=== PATIENT | male | born 1950 | race Two or more races ===

== ENCOUNTER 2021-09-25 10:35 | Emergency (ER) | payer OTHER, MEDICAID ==
[~2021-09-25] VITALS: Ht 182.9 cm; Wt 72.6 kg
[2021-09-25 11:52] VITALS: BP 128/51
[2021-09-25] MEDS ORDERED: HYDROcodone-ACET 5/325MG TAB PO ONE (13:15)
== END 2021-09-25 13:36 ==
LOC: ER 10:35
DX: M48.061 Spinal stenosis, lumbar region without neurogenic claudication (principal); M54.16 Radiculopathy, lumbar region; I10 Essential (primary) hypertension; I25.2 Old myocardial infarction; E78.5 Hyperlipidemia, unspecified; Z95.1 Presence of aortocoronary bypass graft
CPT/HCPCS: 72131

== ENCOUNTER 2022-08-21 13:14 | Inpatient (IN) | payer OTHER ==
[~2022-08-21] VITALS: Ht 182.9 cm; Wt 71.0 kg
[2022-08-21] MEDS ORDERED: methylPREDNISolone SOD SUCC 125 MG/2 ML VL IV ONE (14:00)
[2022-08-21] MEDS ORDERED: IPRATROPIUM BROM 0.5 MG/2.5ML INH SOL HHN ONE (14:00)
[2022-08-21] MEDS ORDERED: ALBUTEROL SULF 2.5 MG/0.5ML(0.5%) NEB SOLN HHN ONE (14:00)
[2022-08-21 14:20] LABS: Basophils # (auto) 0 10 ^3/uL (0-0.2); Basophils % (auto) 0.4 % (0.0-2.0); Eosinophils # (auto) 0.2 10 ^3/uL (0-0.8); Eosinophils % (auto) 1.6 % (0.0-7.0); Hematocrit 36.3 % (41.0-53.0); Hemoglobin 12.3 g/dL (13.5-17.5); Lymphocytes # (auto) 1.9 10 ^3/uL (0.4-5.4); Lymphocytes % (auto) 16.3 % (10.0-50.0); Mean Corpuscular Hemoglobin 33.3 pg (28.0-32.0); Mean Corpuscular Hgb Conc. 33.9 g/dL (32.0-36.0); Mean Corpuscular Volume 98.2 fL (80.0-100.0); Monocytes # (auto) 0.9 10 ^3/uL (0-1.3); Monocytes % (auto) 7.7 % (0.0-12.0); Neutrophils # (auto) 8.5 10 ^3/uL (1.6-8.6); Red Cell Distribution Width 15.1 % (11.8-14.3); White Blood Cell 11.5 10^3/uL (4.4-10.8)
[2022-08-21 14:33] LABS: Albumin 2.8 g/dL (3.4-5.0); BUN/Creatinine Ratio 16.5; Calcium 8.5 mg/dL (8.5-10.1); Potassium 4.1 mmol/L (3.5-5.1)
[2022-08-21 14:35] LABS: Bilirubin, Total 0.4 mg/dL (0.2-1.0); Total Protein 8.6 g/dL (6.4-8.2)
[2022-08-21] MEDS ORDERED: IOHEXOL 350 MG/ML 100ML IJ ONE (15:22)
[2022-08-21 16:48] LABS: Urine Bacteria NONE SEEN /hpf (None Seen); Urine Blood Negative /uL (Negative); Urine WBC <1 /hpf (0 - 3)
[2022-08-21 16:51] LABS: Urine Specific Gravity > 1.050 (1.001-1.035)
[2022-08-21] MEDS ORDERED: NITROGLYCERIN 0.4 MG SL TAB SL PRN (17:15)
[2022-08-21] MEDS ORDERED: DOCUSATE SOD 100 MG CAP PO PRN (17:15)
[2022-08-21] MEDS ORDERED: ONDANSETRON HCL 4 MG/2 ML VIAL IV PRN (17:15)
[2022-08-21] MEDS ORDERED: MORPHINE SULFATE INJ 2 MG/ml SYRG IV PRN (17:15)
[2022-08-21] MEDS ORDERED: HYDROcodone-ACET 5/325MG TAB PO PRN (17:15)
[2022-08-21] MEDS ORDERED: ACETAMINOPHEN 325 MG TAB PO PRN (17:15)
[2022-08-21] MEDS ORDERED: APIX2.5T PO (18:28)
[2022-08-21] MEDS ORDERED: CARV3.1240 PO (18:29)
[2022-08-21] MEDS ORDERED: FURO1TAB33 PO (18:30)
[2022-08-21] MEDS ORDERED: ATOR10TA52 PO (18:30)
[2022-08-21] MEDS: SODIUM CHLORIDE 0.9% 1,000 ML IV SCH (20:59)
[2022-08-22] VITALS (7 sets, daily range): BP systolic 116–129; BP diastolic 49–71
[2022-08-22] MEDS ORDERED: ALBUTEROL SULF 2.5 MG/0.5ML(0.5%) NEB SOLN NEB PRN (01:00)
[2022-08-22] MEDS ORDERED: levoFLOXacin 500MG 100 ML IV SCH (01:01)
[2022-08-22 03:57] LABS: BUN/Creatinine Ratio 21.2; Basophils # (auto) 0 10 ^3/uL (0-0.2); Basophils % (auto) 0.1 % (0.0-2.0); Calcium 8.7 mg/dL (8.5-10.1); Eosinophils # (auto) 0 10 ^3/uL (0-0.8); Hematocrit 33.4 % (41.0-53.0); Hemoglobin 11.3 g/dL (13.5-17.5); Lymphocytes # (auto) 0.9 10 ^3/uL (0.4-5.4); Lymphocytes % (auto) 8.9 % (10.0-50.0); Mean Corpuscular Volume 100.1 fL (80.0-100.0); Monocytes # (auto) 0.2 10 ^3/uL (0-1.3); Monocytes % (auto) 2.1 % (0.0-12.0); Neutrophils # (auto) 8.8 10 ^3/uL (1.6-8.6); Neutrophils % (auto) 88.9 % (37.0-80.0); Potassium 4.1 mmol/L (3.5-5.1); Red Blood Cells 3.34 10^6/uL (4.5-5.90); Red Cell Distribution Width 15.3 % (11.8-14.3); White Blood Cell 9.9 10^3/uL (4.4-10.8)
[2022-08-22] MEDS: methylPREDNISolone SOD SUCC 40 MG/ML VL IV SCH ×3 (06:19→22:06)
[2022-08-22] MEDS ORDERED: FLUT0.05 NAS (10:22)
[2022-08-22] MEDS ORDERED: ALBU2TAB4 IN (10:22)
[2022-08-22] MEDS ORDERED: PRED1SUS4 OP (10:22)
[2022-08-22] MEDS ORDERED: ADAL40IN2 SC (10:24)
[2022-08-22] MEDS: PANTOPRAZOLE 40 MG/10 ML VIAL INJ IV SCH (10:27)
[2022-08-22] MEDS: SODIUM CHLORIDE 0.9% 1,000 ML IV SCH ×2 (10:27→18:57)
[2022-08-22] MEDS: ALBUTEROL SULF 2.5 MG/0.5ML(0.5%) NEB SOLN NEB SCH ×2 (13:35→19:37)
[2022-08-22] MEDS: IPRATROPIUM BROM 0.5 MG/2.5ML INH SOL NEB SCH ×2 (13:35→19:37)
[2022-08-22] MEDS ORDERED: ATORVASTATIN 20 MG TAB PO SCH (22:00)
[2022-08-22] MEDS ORDERED: ALBUTEROL SULF HFA 90MCG INH 200DOSE IN SCH (22:00)
[2022-08-22] MEDS: PIPERACILLIN-TAZOB 3.375GM 100 ML IV SCH (22:06)
[2022-08-22] MEDS: CARVEDILOL 3.125 MG TAB PO SCH (22:06)
[2022-08-23] MEDS: IPRATROPIUM BROM 0.5 MG/2.5ML INH SOL NEB SCH ×3 (00:12→13:46)
[2022-08-23] MEDS: ALBUTEROL SULF 2.5 MG/0.5ML(0.5%) NEB SOLN NEB SCH ×3 (00:12→13:46)
[2022-08-23 05:00] VITALS: BP 120/51
[2022-08-23] MEDS: PIPERACILLIN-TAZOB 3.375GM 100 ML IV SCH ×2 (05:56→15:06)
[2022-08-23] MEDS: methylPREDNISolone SOD SUCC 40 MG/ML VL IV SCH ×2 (05:56→15:06)
[2022-08-23 06:05] LABS: Basophils # (auto) 0 10 ^3/uL (0-0.2); Basophils % (auto) 0.1 % (0.0-2.0); Eosinophils # (auto) 0 10 ^3/uL (0-0.8); Hematocrit 31.9 % (41.0-53.0); Hemoglobin 10.8 g/dL (13.5-17.5); Lymphocytes # (auto) 1.1 10 ^3/uL (0.4-5.4); Lymphocytes % (auto) 7.6 % (10.0-50.0); Mean Corpuscular Hemoglobin 33.6 pg (28.0-32.0); Mean Corpuscular Hgb Conc. 33.9 g/dL (32.0-36.0); Mean Corpuscular Volume 99.1 fL (80.0-100.0); Monocytes # (auto) 0.6 10 ^3/uL (0-1.3); Monocytes % (auto) 3.7 % (0.0-12.0); Neutrophils # (auto) 13.4 10 ^3/uL (1.6-8.6); Neutrophils % (auto) 88.6 % (37.0-80.0); Red Blood Cells 3.22 10^6/uL (4.5-5.90); Red Cell Distribution Width 15.2 % (11.8-14.3); White Blood Cell 15.2 10^3/uL (4.4-10.8)
[2022-08-23 06:23] LABS: Calcium 8.7 mg/dL (8.5-10.1); Potassium 4.1 mmol/L (3.5-5.1)
[2022-08-23 06:25] LABS: BUN/Creatinine Ratio 27.8
[2022-08-23 09:00] VITALS: BP 129/69
[2022-08-23] MEDS ORDERED: FUROSEMIDE 20 MG TAB PO SCH (10:00)
[2022-08-23] MEDS: CARVEDILOL 3.125 MG TAB PO SCH (11:06)
[2022-08-23] MEDS: PANTOPRAZOLE 40 MG/10 ML VIAL INJ IV SCH (11:12)
[2022-08-23] MEDS ORDERED: AMOX-277 PO (12:40)
[2022-08-23] MEDS ORDERED: PRED20TA2 PO (12:40)
[2022-08-23 13:00] VITALS: BP 123/54
[2022-08-23 17:00] VITALS: BP 120/51
[2022-08-23 17:08] VITALS: BP 123/54
== END 2022-08-23 18:20 | disposition home or self-care (01) | DRG 193 ==
LOC: ER 13:16 → UNDOADMIN 17:15 → TELE 17:15 → TELE-WESTW 08-22 04:35
PROVIDERS: ADMIT Internal Medicine; ATTEND Internal Medicine
DX: J18.9 Pneumonia, unspecified organism (principal); J96.01 Acute respiratory failure with hypoxia; J45.901 Unspecified asthma with (acute) exacerbation; J98.11 Atelectasis; Z20.822 Contact with and (suspected) exposure to COVID-19; I10 Essential (primary) hypertension; Z79.01 Long term (current) use of anticoagulants; Z85.46 Personal history of malignant neoplasm of prostate; Z95.1 Presence of aortocoronary bypass graft; Z79.899 Other long term (current) drug therapy
CPT/HCPCS: 36415; 36600; 71045; 71275; 80048; 80053; 81001; 82805; 83605; 83880; 84484; 85025; 85379; 87040; 87070; 87077; 87186; 87205; 87426; 87804; 94640; 94644; 96365; 96375; 99291; C9113; G0378; J1956; J2543

== ENCOUNTER 2023-01-09 07:03 | Inpatient (IN) | payer OTHER ==
[~2023-01-09] VITALS: Ht 182.9 cm; Wt 68.5 kg
[~2023-01-09 07:03] MED LIST: ADAL40IN2 SC; ALBU2TAB4 IN; AMOX-277 PO; APIX2.5T PO; ATOR10TA52 PO; CARV3.1240 PO; FLUT0.05 NAS; FURO1TAB33 PO; PRED1SUS4 OP; PRED20TA2 PO
[2023-01-09] MEDS ORDERED: AZITHROMYCIN 500MG/ 250ML 250 ML IV ONE (08:30)
[2023-01-09] MEDS ORDERED: cefTRIAXone 1GM/50ML D5W 50 ML IV ONE (08:30)
[2023-01-09 08:56] LABS: Basophils # (auto) 0.1 10 ^3/uL (0-0.2); Basophils % (auto) 0.5 % (0.0-2.0); Eosinophils # (auto) 0.2 10 ^3/uL (0-0.8); Eosinophils % (auto) 1.2 % (0.0-7.0); Hematocrit 34.8 % (41.0-53.0); Hemoglobin 11.8 g/dL (13.5-17.5); Lymphocytes % (auto) 14.3 % (10.0-50.0); Mean Corpuscular Hemoglobin 32.6 pg (28.0-32.0); Mean Corpuscular Volume 95.7 fL (80.0-100.0); Neutrophils # (auto) 10.8 10 ^3/uL (1.6-8.6); Nucleated Red Blood Cells % 0.1 %; Red Blood Cells 3.63 10^6/uL (4.5-5.90); Red Cell Distribution Width 15.4 % (11.8-14.3); White Blood Cell 14.1 10^3/uL (4.4-10.8)
[2023-01-09 09:28] LABS: Albumin 2.9 g/dL (3.4-5.0); Calcium 8.6 mg/dL (8.5-10.1)
[2023-01-09 09:31] LABS: BUN/Creatinine Ratio 21.9 (10.0-20.0); Bilirubin, Total 0.5 mg/dL (0.2-1.0)
[2023-01-09] MEDS ORDERED: IOHEXOL 350 MG/ML 100ML IJ ONE (10:39)
[2023-01-09 12:28] LABS: Urine Bacteria FEW /hpf (None Seen); Urine Blood Negative /uL (Negative); Urine Specific Gravity 1.017 (1.001-1.035); Urine WBC 3 /hpf (0 - 3)
[2023-01-09] MEDS ORDERED: ONDANSETRON HCL 4 MG/2 ML VIAL IV PRN (14:15)
[2023-01-09] MEDS ORDERED: DOCUSATE SOD 100 MG CAP PO PRN (14:15)
[2023-01-09] MEDS ORDERED: MORPHINE SULFATE INJ 2 MG/ml SYRG IV PRN (14:15)
[2023-01-09] MEDS ORDERED: NITROGLYCERIN 0.4 MG SL TAB SL PRN (14:15)
[2023-01-09] MEDS ORDERED: HYDROcodone-ACET 5/325MG TAB PO PRN (14:15)
[2023-01-09] MEDS: ACETAMINOPHEN 325 MG TAB PO PRN (15:08)
[2023-01-09] MEDS: levoFLOXacin 500MG 100 ML IV SCH (16:17)
[2023-01-09] MEDS: SODIUM CHLORIDE 0.9% 1,000 ML IV SCH (16:21)
[2023-01-09] MEDS ORDERED: ALBUTEROL SULF 2.5 MG/0.5ML(0.5%) NEB SOLN NEB ONE (18:00)
[2023-01-09 19:00] VITALS: BP 103/42
[2023-01-09] MEDS: APIXABAN 2.5 MG TAB PO SCH (22:44)
[2023-01-09] MEDS: CARVEDILOL 3.125 MG TAB PO SCH (22:44)
[2023-01-09] MEDS: ALBUTEROL SULF 2.5 MG/0.5ML(0.5%) NEB SOLN NEB SCH (23:42)
[2023-01-10] MEDS: ACETAMINOPHEN 325 MG TAB PO PRN (01:04)
[2023-01-10] MEDS: SODIUM CHLORIDE 0.9% 1,000 ML IV SCH ×2 (03:51→16:55)
[2023-01-10] MEDS: ALBUTEROL SULF 2.5 MG/0.5ML(0.5%) NEB SOLN NEB SCH ×3 (06:00→18:43)
[2023-01-10 06:31] LABS: Basophils # (auto) 0.1 10 ^3/uL (0-0.2); Basophils % (auto) 0.4 % (0.0-2.0); Eosinophils # (auto) 0.1 10 ^3/uL (0-0.8); Eosinophils % (auto) 0.5 % (0.0-7.0); Hematocrit 30.6 % (41.0-53.0); Hemoglobin 10.8 g/dL (13.5-17.5); Lymphocytes # (auto) 2.1 10 ^3/uL (0.4-5.4); Lymphocytes % (auto) 16.1 % (10.0-50.0); Mean Corpuscular Hemoglobin 33.5 pg (28.0-32.0); Mean Corpuscular Hgb Conc. 35.2 g/dL (32.0-36.0); Mean Corpuscular Volume 95.4 fL (80.0-100.0); Monocytes % (auto) 7.7 % (0.0-12.0); Neutrophils # (auto) 9.8 10 ^3/uL (1.6-8.6); Neutrophils % (auto) 75.3 % (37.0-80.0); Nucleated Red Blood Cells % 0.1 %; Red Blood Cells 3.21 10^6/uL (4.5-5.90); Red Cell Distribution Width 15.3 % (11.8-14.3)
[2023-01-10 07:05] LABS: BUN/Creatinine Ratio 21.2 (10.0-20.0); Calcium 8.5 mg/dL (8.5-10.1); Potassium 3.7 mmol/L (3.5-5.1)
[2023-01-10] MEDS: CARVEDILOL 3.125 MG TAB PO SCH ×2 (10:00→23:04)
[2023-01-10] MEDS: FUROSEMIDE 20 MG TAB PO SCH (10:00)
[2023-01-10] MEDS: levoFLOXacin 500MG 100 ML IV SCH (10:28)
[2023-01-10] MEDS: prednisoLONE ACETATE 1% OPTH SUSP 5ML OP SCH (10:28)
[2023-01-10] MEDS: APIXABAN 2.5 MG TAB PO SCH ×2 (10:29→23:05)
[2023-01-10] MEDS: ATORVASTATIN 20 MG TAB PO SCH (10:30)
[2023-01-10 12:13] VITALS: BP 124/63
[2023-01-10 12:14] VITALS: BP 118/46
[2023-01-10 18:11] VITALS: BP 118/55
[2023-01-10 22:00] VITALS: BP 124/63
[2023-01-11 05:00] VITALS: BP 112/67
[2023-01-11 06:19] LABS: Basophils # (auto) 0.1 10 ^3/uL (0-0.2); Basophils % (auto) 0.8 % (0.0-2.0); Eosinophils # (auto) 0.2 10 ^3/uL (0-0.8); Eosinophils % (auto) 2.3 % (0.0-7.0); Hematocrit 30.6 % (41.0-53.0); Hemoglobin 10.8 g/dL (13.5-17.5); Lymphocytes # (auto) 2.3 10 ^3/uL (0.4-5.4); Lymphocytes % (auto) 25.9 % (10.0-50.0); Mean Corpuscular Hemoglobin 33.2 pg (28.0-32.0); Mean Corpuscular Hgb Conc. 35.4 g/dL (32.0-36.0); Mean Corpuscular Volume 93.6 fL (80.0-100.0); Monocytes # (auto) 1.1 10 ^3/uL (0-1.3); Monocytes % (auto) 11.9 % (0.0-12.0); Neutrophils # (auto) 5.3 10 ^3/uL (1.6-8.6); Neutrophils % (auto) 59.1 % (37.0-80.0); Nucleated Red Blood Cells % 0.1 %; Red Blood Cells 3.27 10^6/uL (4.5-5.90); Red Cell Distribution Width 15.4 % (11.8-14.3); White Blood Cell 8.9 10^3/uL (4.4-10.8)
[2023-01-11 06:37] LABS: BUN/Creatinine Ratio 23.4 (10.0-20.0); Calcium 8.8 mg/dL (8.5-10.1); Potassium 3.8 mmol/L (3.5-5.1)
[2023-01-11] MEDS: ALBUTEROL SULF 2.5 MG/0.5ML(0.5%) NEB SOLN NEB SCH ×4 (07:40→18:11)
[2023-01-11 09:00] VITALS: BP 116/56
[2023-01-11] MEDS: ATORVASTATIN 20 MG TAB PO SCH (09:41)
[2023-01-11] MEDS: CARVEDILOL 3.125 MG TAB PO SCH (09:42)
[2023-01-11] MEDS: levoFLOXacin 500MG 100 ML IV SCH ×2 (09:46→13:21)
[2023-01-11] MEDS: FUROSEMIDE 20 MG TAB PO SCH (09:47)
[2023-01-11] MEDS: APIXABAN 2.5 MG TAB PO SCH (09:54)
[2023-01-11] MEDS: prednisoLONE ACETATE 1% OPTH SUSP 5ML OP SCH (09:54)
[2023-01-11] MEDS ORDERED: LEVO500T31 PO (16:46)
[2023-01-11 17:00] VITALS: BP 104/44
[2023-01-11 18:13] VITALS: BP 94/52
== END 2023-01-11 19:00 | disposition home or self-care (01) | DRG 871 ==
LOC: ER 07:03 → TELE 14:48 → TELE-CENTR 01-10 11:51
PROVIDERS: ADMIT Internal Medicine; ATTEND Internal Medicine
DX: A41.9 Sepsis, unspecified organism (principal); J18.9 Pneumonia, unspecified organism; J96.01 Acute respiratory failure with hypoxia; E78.5 Hyperlipidemia, unspecified; I10 Essential (primary) hypertension; I25.10 Atherosclerotic heart disease of native coronary artery without angina pectoris; J45.909 Unspecified asthma, uncomplicated; Z20.822 Contact with and (suspected) exposure to COVID-19; M06.9 Rheumatoid arthritis, unspecified; Z79.01 Long term (current) use of anticoagulants; Z95.1 Presence of aortocoronary bypass graft; Z79.899 Other long term (current) drug therapy
CPT/HCPCS: 36415; 71046; 71275; 80048; 80053; 81001; 83605; 83880; 84484; 85025; 85379; 87040; 87426; 93005; 94640; 96365; 96367; G0378; J0696; J1956

== ENCOUNTER 2024-09-02 11:29 | Inpatient (IN) | payer OTHER ==
[~2024-09-02] VITALS: Ht 182.9 cm; Wt 70.5 kg
[~2024-09-02 11:29] MED LIST changes: +ALBU2TAB11 IN; -ALBU2TAB4 IN; -AMOX-277 PO; +LEVO500T31 PO; -PRED20TA2 PO
--- NOTE | 2024-09-02 11:58 | ECG ---
[facility] Test Date: 2024-09-02 Test Time: 11:56:53 Pat Name: AMBROSIO COBURN Department: er Room: 0248T Gender: M Director Cardiology: richi : 1950 Requested By: DARNELL MATA Order Number: [id number] Reading MD: Robel Olson Measurements Intervals [place] Rate: 99 P: 40 CA: 157 QRS: 91 QRSD: 94 T: 70 QT: 363 QTc: 466 Interpretive Statements Sinus rhythm Ventricular bigeminy Anterior infarct, acute (LAD) Baseline wander in lead(s) V2 Electronically Signed On 09-03-2024 8:27:38 PST by Robel Olson Please click the below link to view image of tracing.
--- NOTE | 2024-09-02 12:00 | ED.PDOC ---
History of Present Illness HPI Comments 74-year-old male presents with a chief complaint of headache x 1 week with associated neck pain and congestion nasally. Patient states that his pain is localized to his neck and head and that it has been present for the past x 1 week. Patient reports that he took Motrin at home and had some relief, but not t otal relief of symptoms. Patient by hypotensive in triage at 125/34 and was bradycardic. No other symptoms or modifying factors present at this time. Chief Complaint: Headache Time Seen by MD: 11:52 Primary Care Provider: FRANCISCO Jj Notes: Medications, Allergies Allergies: Coded Allergies: No Known Drug Allergy (Verified Allergy, Unknown, 09/25/21) Home Meds Active Scripts Levofloxacin (Levaquin) 500 Mg Tab, 500 MG PO DAILY, #7 MG Prov:KELIN DELACRUZ MD 01/11/23 Reported Medications Adalimumab (Humira Pen) 40 Mg/0.4 Ml Inj, 40 MG SC UD, INJ 08/22/22 Prednisolone Acetate (Ophth) (Pred Forte) 1 % Erin, 1 % OP, ML 08/22/22 Fluticasone Propionate (Fluticasone Propionate) 0.05 % Cre, 50 MCG SOPHIE for 30 Days, MCG 08/22/22 Albuterol Sulfate (Albuterol Sulfate) 2 Mg Tab, 90 MCG IN, MG 08/22/22 Atorvastatin Calcium (ATORVASTATIN CALCIUM) 10 Mg Tab, 1 TAB PO DAILY, #90 TAB 1 Refill 08/21/22 Furosemide (Lasix) 20 Mg Tb, 1 TAB PO DAILY, #90 TAB 1 Refill 08/21/22 Carvedilol (Carvedilol) 3.125 Mg Tab, 3.125 MG PO BID, TAB 08/21/22 Apixaban Base (ELIQUIS) 2.5 Mg Tab, 2.5 MG PO BID, TAB 08/21/22 Information Source: Patient Mode of Arrival: Ambulatory Severity: Moderate Timing: Days Duration: Since onset Prehospital treatment: None Past Medical History PAST MEDICAL HISTORY: Arthritis, Asthma, Cancer, High Lipids, HTN Surgical History: CABG, Hernia Repair Family History Family History: Reviewed,noncontributory to illness, Family hx of Cancer, Family hx of heart cedric Social History Smoker: Non-Smoker Alcohol: Denies ETOH Use Drugs: Denies Drug Use Lives In: Home Constitutional: denies: chills, diaphoresis, fatigue, fever, malaise, sweats, weakness, others EENTM: reports: nose congestion; denies: blurred vision, double vision, ear bleeding, ear discharge, ear drainage, ear pain, ear ringing, eye pain, eye redness, hearing loss, mouth pain, mouth swelling, nasal discharge, nose bleeding, nose pain, photophobia, tearing, throat pain, throat swelling, voice changes, others Respiratory: denies: cough, hemoptysis, orthopnea, SOB at rest, shortness of breath, SOB with excertion, stridor, wheezing, others Cardiovascular: denies: chest pain, dizzy spells, diaphoresis, Dyspnea on exertion, edema, irregular heart beat, left arm pain, lightheadedness, palpitations, PND, syncope, others Gastrointestinal: denies: abdomen distended, abdominal pain, blood streaked bowels, constipated, diarrhea, dysphagia, difficulty swallowing, hematemesis, melena, nausea, poor appetite, poor fluid intake, rectal bleeding, rectal pain, vomiting, others Genitourinary: denies: burning, dysuria, flank pain, frequency, hematuria, incontinence, penile discharge, penile sore, pain, testicle pain, testicle swelling, urgency, others Neurological: reports: headache; denies: dizziness, fainting, left sided numbness, left sided weakness, numbness, paresthesia, pre-existing deficit, right sided numbness, right sided weakness, seizure, speech problems, tingling, tremors, weakness, others Musculoskeletal: reports: neck pain; denies: back pain, gout, joint pain, joint swelling, muscle pain, muscle stiffness, others Integumetry: denies: bruises, change in color, change in hair/nails, dryness, laceration, lesions, lumps, rash, wounds, others Allergic/Immunocompromised: denies: Difficulty Healing, Frequent Infections, Hives, Itching, others Hematologic/Lymphatic: denies: anemia, blood clots, easy bleeding, easy bruising, swollen glands, others Endocrine: denies: excessive hunger, excessive sweating, excessive thirst, excessive urination, flushing, intolerance to cold, intolerance to heat, unexplained weight gain, unexplained weight loss, others Psychiatric: denies: anxiety, bipolar disorder, depression, hopeless, panic disorder, schizophrenia, sleepless, suicidal, others All Other Systems: Reviewed and Negative Physical Exam General Appearance: No Apparent Distress, Normal HEENT: Normal ENT Inspection, Pharynx Normal, TMs Normal Neck: Full Range of Motion, Non-Tender, Normal, Normal Inspection Respiratory: Chest Non-Tender, Lungs Clear, No Accessory Muscle Use, No Respiratory Distress, Normal Breath Sounds Cardiovascular: Bradycardia, No Edema, No JVD, No Murmur, No Gallop Breast Exam: Deferred Gastrointestinal: No Organomegaly, Non Tender, No Pulsatile Mass, Normal Bowel Sounds, Soft Genitalia: Deferred Pelvic: Deferred Rectal: Deferred Extremities: No calf tenderness, Normal capillary refill, Normal inspection, Normal range of motion, Non-tender, No pedal edema Musculoskeletal : Apperance: Normal Neurologic: Alert, pai gow manager II-XII nml as Tested, No Motor Deficits, Normal Affect, Normal Mood, No Sensory Deficits Cerebellar Function: Normal Reflexes: Normal Skin: Dry, Normal Color, Warm Lymphatic: No Adenopathy Was a procedure done? Was a procedure done?: No Differential Dx Considerations may include: Electrolyte abnormality, ACS,, cardiac arrythmia, infections etiology. X-Ray, Labs, Meds, VS Vital Signs Date Time Temp Pulse Resp B/P (MAP) Pulse Ox O2 Delivery O2 Flow Rate FiO2 09/02/24 15:55 66 18 93/43 (60) 95 09/02/24 14:42 67 09/02/24 13:24 71 15 95 Room Air* 0 21 09/02/24 13:23 98.9 71 15 109/35 (59) 95 98.9 09/02/24 12:50 72 09/02/24 11:56 99 09/02/24 11:51 99.6 43 18 125/34 (64) 100 Lab Test 09/02/24 13:32 09/02/24 12:58 09/02/24 12:09 Range/Units Urine Color Light-yellow Yellow Urine Clarity Clear Clear Urine pH 5.0 5.0-9.0 Urine Specific [place] 1.011 1.001-1.035 Urine Protein Negative Negative Urine Ketones Negative Negative Urine Blood Negative Negative /uL Urine Nitrite Negative Negative Urine Bilirubin Negative Negative Urine Urobilinogen Normal Negative mg/dL Urine Leukocyte Esterase Negative Negative /uL Urine RBC 1 0 - 3 /hpf Urine WBC <1 0 - 3 /hpf Urine Squamous Epithelial Cells None seen <5 /hpf Urine Bacteria None seen None Seen /hpf Urine Glucose Normal Normal mg/dL Troponin I High Sensitivity 4 5 </=54 ng/L White Blood Count 8.2 4.4-10.8 10^3/uL Red Blood Count 3.77 L 4.5-5.90 10^6/uL Hemoglobin 12.4 L 13.5-17.5 g/dL Hematocrit 37.2 L 41.0-53.0 % Mean Corpuscular Volume 98.9 80.0-100.0 fL Mean Corpuscular Hemoglobin 32.9 H 28.0-32.0 pg Mean Corpuscular Hemoglobin Concent 33.2 32.0-36.0 g/dL Red Cell Distribution Width 16.2 H 11.8-14.3 % Platelet Count 217 140-450 10^3/uL Mean Platelet Volume 7.3 6.9-10.8 fL Neutrophils (%) (Auto) 61.0 37.0-80.0 % Lymphocytes (%) (Auto) 24.1 10.0-50.0 % Monocytes (%) (Auto) 9.9 0.0-12.0 % Eosinophils (%) (Auto) 4.4 0.0-7.0 % Basophils (%) (Auto) 0.6 0.0-2.0 % Neutrophils # (Auto) 5.0 1.6-8.6 10 ^3/uL Lymphocytes # (Auto) 2.0 0.4-5.4 10 ^3/uL Monocytes # (Auto) 0.8 0-1.3 10 ^3/uL Eosinophils # (Auto) 0.4 0-0.8 10 ^3/uL Basophils # (Auto) 0 0-0.2 10 ^3/uL Nucleated Red Blood Cells 0.1 % Sodium Level 136 136-145 mmol/L Potassium Level 4.5 3.5-5.1 mmol/L Chloride Level 104 98-107 mmol/L Carbon Dioxide Level 26 20-31 mmol/L Anion Gap 6 5-15 Blood Urea Nitrogen 24 H 9-23 mg/dL Creatinine 1.21 0.700-1.30 mg/dL Glomerular Filtration Rate Calc 62 >90 mL/min BUN/Creatinine Ratio 19.8 10.0-20.0 Serum Glucose 125 H 74-106 mg/dL Calcium Level 9.3 8.7-10.4 mg/dL Current Medications Medications (Trade) Dose Ordered Sig/[place] Route Start Time Stop Time Status Last Admin Sodium Chloride 1,000 ml @ 1,000 mls/hr Q1H ONCE IV 09/02/24 12:00 09/02/24 12:59 DC 09/02/24 13:13 Metoclopramide HCl (Reglan Injection) 10 mg ONCE ONCE IV 09/02/24 12:00 09/02/24 12:01 DC 09/02/24 13:12 Time of 1ST Reevaluation: 12:22 Reevaluation 1ST: Unchanged Patient Education/Counseling: Diagnosis, Treatment, Prognosis Family Education/Counseling: No Family Present Departure 1 Departure Time of Disposition: 16:24 (Patient with symptomatic bradycardia we will admit patient for further workup) Impression: Primary Impression: Symptomatic bradycardia Additional Impressions: Migraine Qualified Codes: G43.109 - Migraine with aura, not intractable, without status migrainosus Weakness Disposition: ADMITTED INPATIENT Admit to: Med Surg Condition: Serious Critical Care Note Critical Care Time?: No Stability Stability form required: No I personally scribed for DARNELL MATA MD ([email or web address]) on 09/02/24 at 12:00. Electronically submitted by Niels Padilla ([email or web address]). DARNELL MATA MD Sep 02, 2024 12:00
--- NOTE | 2024-09-02 12:22 | DVH ---
Chest x-ray Technique: PA and lateral views REASON FOR EXAM: bradycardia 10: 08/21/2022 FINDINGS: Heart size is normal. There is a vascular clip in the region of the mitral valve. There are no infiltrates or effusions. Minimal bronchiectasis is seen in the lower lung zones IMPRESSION: 1. No acute cardiopulmonary pathology.
[2024-09-02 12:28] LABS: Basophils # (auto) 0 10 ^3/uL (0-0.2); Basophils % (auto) 0.6 % (0.0-2.0); Eosinophils # (auto) 0.4 10 ^3/uL (0-0.8); Eosinophils % (auto) 4.4 % (0.0-7.0); Hematocrit 37.2 % (41.0-53.0); Hemoglobin 12.4 g/dL (13.5-17.5); Lymphocytes % (auto) 24.1 % (10.0-50.0); Mean Corpuscular Hemoglobin 32.9 pg (28.0-32.0); Mean Corpuscular Hgb Conc. 33.2 g/dL (32.0-36.0); Mean Corpuscular Volume 98.9 fL (80.0-100.0); Monocytes # (auto) 0.8 10 ^3/uL (0-1.3); Monocytes % (auto) 9.9 % (0.0-12.0); Nucleated Red Blood Cells % 0.1 %; Platelet Count (auto) 217 10^3/uL (140-450); Red Blood Cells 3.77 10^6/uL (4.5-5.90); Red Cell Distribution Width 16.2 % (11.8-14.3); White Blood Cell 8.2 10^3/uL (4.4-10.8)
[2024-09-02 12:35] LABS: Chloride 104 mmol/L (98-107); Potassium 4.5 mmol/L (3.5-5.1); Sodium 136 mmol/L (136-145)
[2024-09-02 12:36] LABS: Anion Gap 6 (5-15); Calcium 9.3 mg/dL (8.7-10.4); Carbon Dioxide 26 mmol/L (20-31)
[2024-09-02 12:41] LABS: BUN/Creatinine Ratio 19.8 (10.0-20.0); Blood Urea Nitrogen 24 mg/dL (9-23); Glucose 125 mg/dL (74-106)
[2024-09-02] MEDS: METOCLOPRAMIDE HCL 5MG/ml INJ 2ml VIAL IV ONE (13:12)
[2024-09-02] MEDS: SODIUM CHLORIDE 0.9% 1,000 ML IV ONE (13:13)
[2024-09-02 13:24] VITALS: PULSE 71; RESP 15; O2SAT 95
--- NOTE | 2024-09-02 14:45 | ECG ---
[facility] Test Date: 2024-09-02 Test Time: 14:42:51 Pat Name: AMBROSIO COBURN Department: er Room: 0248T Gender: M Payroll Representative: dr HODGES: 1950 Requested By: DARNELL MATA Order Number: [id number] Reading MD: Robel Olson Measurements Intervals [place] Rate: 67 P: 83 LA: 190 QRS: 102 QRSD: 90 T: -6 QT: 428 QTc: 452 Interpretive Statements Sinus rhythm Right axis deviation Borderline repolarization abnormality Minimal ST elevation, anterior leads Electronically Signed On 09-03-2024 8:28:06 PST by Robel Olson Please click the below link to view image of tracing.
[2024-09-02 15:17] LABS: Urine Bacteria None Seen /hpf (None Seen)
[2024-09-02 15:47] LABS: Urine Blood Negative /uL (Negative); Urine Clarity Clear (Clear); Urine Color Light-Yellow (Yellow); Urine Protein, UAD Negative (Negative); Urine Specific Gravity 1.011 (1.001-1.035); Urine Urobilinogen Normal (Negative); Urine WBC <1 /hpf (0 - 3)
[2024-09-02] MEDS ORDERED: NITROGLYCERIN 0.4 MG SL TAB SL PRN (17:00)
[2024-09-02] MEDS ORDERED: MORPHINE SULFATE INJ 2 MG/ml SYRG IV PRN ×2 (17:00)
[2024-09-02] MEDS ORDERED: ONDANSETRON HCL 4 MG/2 ML VIAL IV PRN (17:00)
[2024-09-02 19:30] VITALS: PULSE 78; RESP 16; O2SAT 97
[2024-09-02 21:21] VITALS: BP_SYST 121; BP_DIAS 71; BP_DIAS 77; PULSE 80; RESP 16; TEMP 99.3; O2SAT 97
[2024-09-02 21:24] VITALS: PULSE 81
[2024-09-02 22:00] VITALS: BP 119/70; PULSE 77; RESP 16; TEMP 99.3; O2SAT 97
[2024-09-03] VITALS (8 sets, daily range): BP systolic 110–122; BP diastolic 40–73; PULSE 45–94; RESP 16–19; TEMP 98.3–99.9; O2SAT 93–98
[2024-09-03 06:39] LABS: Basophils # (auto) 0 10 ^3/uL (0-0.2); Basophils % (auto) 0.5 % (0.0-2.0); Eosinophils # (auto) 0.4 10 ^3/uL (0-0.8); Eosinophils % (auto) 5.2 % (0.0-7.0); Hematocrit 33.5 % (41.0-53.0); Hemoglobin 11.6 g/dL (13.5-17.5); Lymphocytes # (auto) 2.6 10 ^3/uL (0.4-5.4); Lymphocytes % (auto) 31.3 % (10.0-50.0); Mean Corpuscular Hgb Conc. 34.6 g/dL (32.0-36.0); Mean Corpuscular Volume 98.2 fL (80.0-100.0); Monocytes # (auto) 0.9 10 ^3/uL (0-1.3); Neutrophils # (auto) 4.3 10 ^3/uL (1.6-8.6); Nucleated Red Blood Cells % 0.2 %; Platelet Count (auto) 179 10^3/uL (140-450); Red Blood Cells 3.42 10^6/uL (4.5-5.90); Red Cell Distribution Width 15.8 % (11.8-14.3); White Blood Cell 8.3 10^3/uL (4.4-10.8)
[2024-09-03] MEDS: HYDROcodone-ACET 5/325MG TAB PO PRN (07:08)
[2024-09-03 07:16] LABS: Alanine Aminotransferase 16 U/L (7-40); Albumin 3.7 g/dL (3.2-4.8); Alkaline Phosphatase 86 U/L (46-116); Anion Gap 7 (5-15); Aspartate Aminotransferase 11 U/L (13-40); BUN/Creatinine Ratio 18.4 (10.0-20.0); Blood Urea Nitrogen 21 mg/dL (9-23); Calcium 9.6 mg/dL (8.7-10.4); Carbon Dioxide 25 mmol/L (20-31); Chloride 103 mmol/L (98-107); Glucose 89 mg/dL (74-106); Potassium 4.5 mmol/L (3.5-5.1); Sodium 135 mmol/L (136-145)
[2024-09-03 07:17] LABS: Bilirubin, Total 0.5 mg/dL (0.2-1.0); Total Protein 8.3 g/dL (5.7-8.2)
--- NOTE | 2024-09-03 07:20 | ECG ---
[facility] Test Date: 2024-09-02 Test Time: 12:50:32 Pat Name: AMBROSIO COBURN Department: ER Room: 0248T A Gender: M Top Stitcher: DR HODGES: 1950 Requested By: DARNELL MATA Order Number: [id number] Reading MD: Robel Olson Measurements Intervals [place] Rate: 72 P: 76 MT: 178 QRS: 93 QRSD: 97 T: 27 QT: 401 QTc: 439 Interpretive Statements Sinus rhythm Right axis deviation RSR' in V1 or V2, probably normal variant Electronically Signed On 09-03-2024 8:27:48 PST by Robel Olson Please click the below link to view image of tracing.
--- NOTE | 2024-09-03 08:41 | DVHSR ---
APPROVED REPORT EXAM: Two-dimensional and M-mode echocardiogram with Doppler and color Doppler. Blood Pressure: 93/43 mmHg INDICATION Bradycardia Surgery/Intervention CABG: OPAL clip RISK FACTORS Height: 6'0", Weight: 145 DIMENSIONS LVDd5.1 (3.8-5.7cm)LA (2D)3.7 (1.9-4.0cm)Aortic Root3.4 (2.0-3.7cm) LVDs3.9 (2.5-4.0cm)LA (MM) (1.9-4.0cm)Aortic Cusp Exc1.9 (1.5-2.0cm) EF (%) 47.0 (55-70%)Rt. Atrium4.2 (1.9-4.0cm)Asc. Aorta cm IVSd1.0 (0.7-1.1cm)RV (D) (1.8-2.4cm) PWd0.9 (0.7-1.1cm) Mitral Valve MitralMitral Stenosis E wave1.06m/sMV Mean GR.mmHg A wave0.54m/sMV Peak GR.mmHg E/A ratio2.02D MVAcm2 DECEL [id number] 1/2 Timems Aortic Valve Aortic ValveAortic Stenosis V10.83m/Amy Mean GR.3mmHg V21.05m/Amy Peak GR.4mmHg LVOT Diameter2.0 (1.8-2.4cm)Doppler AVA2.48cm2 AI P 1/2 Ahwx286.25ms Pulmonic Valve V20.82m/s Tricuspid Valve TR Velocity2.33m/s [id number] Conclusion Technically good study. Sinus rhythm. Mild left atrial enlargement. Mild aortic root enlargement. Mild calcification of the sinuses of Va lsalva. Valves appear to be structurally normal. Left ventricular function is preserved. EF is about 50% with normal RV function. There is moderate mitral regurgitation. Mild aortic insufficiency. Mild tricuspid regurgitation. No pericardial effusion masses or vegetations.
[2024-09-03] MEDS: ENOXAPARIN SOD 40 MG/0.4 ML SYRINGE SC SCH (09:19)
--- NOTE | 2024-09-03 16:55 | DVHDS2 ---
Discharge Summary Date of Admission Sep 02, 2024 at 16:52 Date of Discharge: Sep 03, 2024 Labs/Diagnostic Data: Laboratory Results Test 09/03/24 05:45 09/02/24 13:32 09/02/24 12:58 White Blood Count 8.3 10^3/uL (4.4-10.8) Red Blood Count 3.42 10^6/uL (4.5-5.90) Hemoglobin 11.6 g/dL (13.5-17.5) Hematocrit 33.5 % (41.0-53.0) Mean Corpuscular Volume 98.2 fL (80.0-100.0) Mean Corpuscular Hemoglobin 34.0 pg (28.0-32.0) Mean Corpuscular Hemoglobin Concent 34.6 g/dL (32.0-36.0) Red Cell Distribution Width 15.8 % (11.8-14.3) Platelet Count 179 10^3/uL (140-450) Mean Platelet Volume 7.2 fL (6.9-10.8) Neutrophils (%) (Auto) 52.0 % (37.0-80.0) Lymphocytes (%) (Auto) 31.3 % (10.0-50.0) Monocytes (%) (Auto) 11.0 % (0.0-12.0) Eosinophils (%) (Auto) 5.2 % (0.0-7.0) Basophils (%) (Auto) 0.5 % (0.0-2.0) Neutrophils # (Auto) 4.3 10 ^3/uL (1.6-8.6) Lymphocytes # (Auto) 2.6 10 ^3/uL (0.4-5.4) Monocytes # (Auto) 0.9 10 ^3/uL (0-1.3) Eosinophils # (Auto) 0.4 10 ^3/uL (0-0.8) Basophils # (Auto) 0 10 ^3/uL (0-0.2) Nucleated Red Blood Cells 0.2 % Sodium Level 135 mmol/L (136-145) Potassium Level 4.5 mmol/L (3.5-5.1) Chloride Level 103 mmol/L (98-107) Carbon Dioxide Level 25 mmol/L (20-31) Anion Gap 7 (5-15) Blood Urea Nitrogen 21 mg/dL (9-23) Creatinine 1.14 mg/dL (0.700-1.30) Glomerular Filtration Rate Calc 67 mL/min (>90) BUN/Creatinine Ratio 18.4 (10.0-20.0) Serum Glucose 89 mg/dL (74-106) Calcium Level 9.6 mg/dL (8.7-10.4) Total Bilirubin 0.5 mg/dL (0.2-1.0) Aspartate Amino Transferase (AST) 11 U/L (13-40) Alanine Aminotransferase (ALT) 16 U/L (7-40) Alkaline Phosphatase 86 U/L (46-116) Total Protein 8.3 g/dL (5.7-8.2) Albumin 3.7 g/dL (3.2-4.8) Urine Color Light-yellow (Yellow) Urine Clarity Clear (Clear) Urine pH 5.0 (5.0-9.0) Urine Specific [place] 1.011 (1.001-1.035) Urine Protein Negative (Negative) Urine Ketones Negative (Negative) Urine Blood Negative /uL (Negative) Urine Nitrite Negative (Negative) Urine Bilirubin Negative (Negative) Urine Urobilinogen Normal mg/dL (Negative) Urine Leukocyte Esterase Negative /uL (Negative) Urine RBC 1 /hpf (0 - 3) Urine WBC <1 /hpf (0 - 3) Urine Squamous Epithelial Cells None seen /hpf (<5) Urine Bacteria None seen /hpf (None Seen) Urine Glucose Normal mg/dL (Normal) Troponin I High Sensitivity 4 ng/L (</=54) Other Laboratory Tests 09/03/24 05:45 Final Diagnosis/Problems List 1. Bradycardia, currently in normal sinus rhythm 2. Acute cephalgia, CT head is negative 3. Coronary artery disease status post CABG 4. Hypertension Discharge Disposition: Home Discharge Instruct/Medications Diet: Cardiac 2g Na,low cholest Activity: No Restrictions, As Tolerated Follow Up/Referral: Follow up with the PCP in 1-2 weeks Follow up with Dr. Olson Cardiology in 1-2 weeks Medications: Resume home medications Discharge Statement: "Patient was advised to return to the ER or call 911 if any headaches, dizziness, shortness of breath, chest pain, abdominal pain, bleeding, fevers, or worsening of medical condition. Patient was counseled about treatment plan, medications, possible side effects, patientverbalized understanding. All questions were answered to the best of my ability. This discharge took greater then 30 minutes in planning, reviewing documentation, counseling the patient, and discussing with other team members." ASSESSMENT ASSESSMENT Assessment 1. Bradycardia, currently in normal sinus rhythm 2. Acute cephalgia, CT head is negative 3. Coronary artery disease status post CABG 4. Hypertension YURIDIA FANG MD Sep 03, 2024 16:55
--- NOTE | 2024-09-03 16:55 | DVHHP2 ---
History of Present Illness Reason for Visit: Headache History of Present Illness 74-year-old male with known history of coronary artery disease status post CABG, hypertension, who initially presented to the hospital with a headache in the ER patient was found to have oxygen does 30s to 40s paroxysmal. Patient currently normal sinus rhythm. Patient denies any chest pain shortness of breath. Cardiovascular: CAD, HTN Past Surgical History: None, CABG Family History: None Smoke: No ALCOHOL: none Review of Systems Review of Systems Twelve review of system were negative besides mentioned above. Allergies: Coded Allergies: No Known Drug Allergy (Verified Allergy, Unknown, 09/25/21) Medications Current Medications Medications Dose Ordered Sig/[place] Route Start Time Stop Time Status Last Admin Dose Admin Acetaminophen/ Hydrocodone Bitart 1 tab Q4HP PRN PO 09/02/24 17:00 09/03/24 07:08 1 TAB Ondansetron HCl 4 mg Q4HP PRN IV 09/02/24 17:00 Enoxaparin Sodium 40 mg DAILY SC 09/03/24 10:00 09/03/24 09:19 40 MG Acetaminophen 650 mg Q6HP PRN PO 09/02/24 17:00 Morphine Sulfate 2 mg Q4HPRN PRN IV 09/02/24 17:00 Nitroglycerin 0.4 mg Q5MINP PRN SL 09/02/24 17:00 Morphine Sulfate 2 mg Q30M PRN IV 09/02/24 17:00 Exam Vital Signs Vital Signs Date Time Temp Pulse Resp B/P (MAP) Pulse Ox O2 Delivery O2 Flow Rate FiO2 09/03/24 13:28 98.3 66 19 110/55 (73) 98 98.3 09/03/24 08:00 Room Air* 0 21 Exam HEENT pupils are reactive Neck is supple CV is S1-S2 regular rate and rhythm Respiratory diminished breath sound bases GI positive bowel sound 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0 % Eosinophils (%) (Auto) 5.2 0.0-7.0 % Basophils (%) (Auto) 0.5 0.0-2.0 % Neutrophils # (Auto) 4.3 1.6-8.6 10 ^3/uL Lymphocytes # (Auto) 2.6 0.4-5.4 10 ^3/uL Monocytes # (Auto) 0.9 0-1.3 10 ^3/uL Eosinophils # (Auto) 0.4 0-0.8 10 ^3/uL Basophils # (Auto) 0 0-0.2 10 ^3/uL Nucleated Red Blood Cells 0.2 % Sodium Level 135 L 136-145 mmol/L Potassium Level 4.5 3.5-5.1 mmol/L Chloride Level 103 98-107 mmol/L Carbon Dioxide Level 25 20-31 mmol/L Anion Gap 7 5-15 Blood Urea Nitrogen 21 9-23 mg/dL Creatinine 1.14 0.700-1.30 mg/dL Glomerular Filtration Rate Calc 67 >90 mL/min BUN/Creatinine Ratio 18.4 10.0-20.0 Serum Glucose 89 74-106 mg/dL Calcium Level 9.6 8.7-10.4 mg/dL Total Bilirubin 0.5 0.2-1.0 mg/dL Aspartate Amino Transferase (AST) 11 L 13-40 U/L Alanine Aminotransferase (ALT) 16 7-40 U/L Alkaline Phosphatase 86 46-116 U/L Total Protein 8.3 H 5.7-8.2 g/dL Albumin 3.7 3.2-4.8 g/dL Urine Color Light-yellow Yellow Urine Clarity Clear Clear Urine pH 5.0 5.0-9.0 Urine Specific [place] 1.011 1.001-1.035 Urine Protein Negative Negative Urine Ketones Negative Negative Urine Blood Negative Negative /uL Urine Nitrite Negative Negative Urine Bilirubin Negative Negative Urine Urobilinogen Normal Negative mg/dL Urine Leukocyte Esterase Negative Negative /uL Urine RBC 1 0 - 3 /hpf Urine WBC <1 0 - 3 /hpf Urine Squamous Epithelial Cells None seen <5 /hpf Urine Bacteria None seen None Seen /hpf Urine Glucose Normal Normal mg/dL Troponin I High Sensitivity 4 </=54 ng/L Assessment/Plan Assessment/Plan 74-year-old male with known history of coronary artery disease status post CABG, hypertension he has been in the hospital with a have 1. Acute cephalgia 2. Coronary artery disease status post CABG 3. Episode of bradycardia in ER, Currently in normal sinus rhythm -2D echo, cardiology consultation, CT head is negative, plan of care discussed with the patient was patient and family members. Plan discussed with: Patient Problem List: (1) Weakness (2) Migraine (3) Symptomatic bradycardia Date of Service: Sep 03, 2024 Billing Provider: YURIDIA FANG MD Common Visit Codes: NOT BILLABLE YURIDIA FANG MD Sep 03, 2024 16:55
[2024-09-04] VITALS (8 sets, daily range): BP systolic 104–128; BP diastolic 47–64; PULSE 69–77; RESP 17–20; TEMP 97.9–99.1; O2SAT 94–98
[2024-09-04] MEDS: ACETAMINOPHEN 325 MG TAB PO PRN (11:48)
[2024-09-04 14:04] LABS: Chloride 101 mmol/L (98-107); Potassium 4.3 mmol/L (3.5-5.1)
[2024-09-04 14:05] LABS: Anion Gap 10 (5-15); Carbon Dioxide 23 mmol/L (20-31)
[2024-09-04 14:06] LABS: Calcium 9.9 mg/dL (8.7-10.4)
[2024-09-04 14:10] LABS: Glucose 104 mg/dL (74-106)
[2024-09-04 14:11] LABS: BUN/Creatinine Ratio 20.2 (10.0-20.0); Blood Urea Nitrogen 21 mg/dL (9-23); Sodium 134 mmol/L (136-145)
--- NOTE | 2024-09-04 14:36 | DVHPN2 ---
Subjective Overnight events noted. Patient was cleared by Cardiology patient was does complaining of headache for early childhood awakening past three weeks. Patient denies any neck pain denies any fever chills. On my exam there was no evidence of any temporal artery tenderness Reviewed: Care Plan Changes from previous H/P or p: No Changes Objective Vitals Vital Signs Date Time Temp Pulse Resp B/P (MAP) Pulse Ox O2 Delivery O2 Flow Rate FiO2 09/04/24 12:10 99.1 77 20 128/53 (78) 95 99.1 09/03/24 20:00 Room Air* 0 21 Intake/Output Intake and Output 09/04/24 07:00 Intake Total 475 ml Output Total 600 ml Balance -125 ml Intake Oral 475 ml Output Urine Total 600 ml # Voids 2 Exam HEENT pupils are reactive has 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 Neck is supple CV is S1-S2 regular rate and rhythm Respiratory diminished breath sounds at bases GI posterior bowel sound Extremity no pedal 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, 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 Medications Current Medications Medications Dose Ordered Sig/[place] Route Start Time Stop Time Status Last Admin Dose Admin Acetaminophen/ Hydrocodone Bitart 1 tab Q4HP PRN PO 09/02/24 17:00 09/03/24 07:08 1 TAB Ondansetron HCl 4 mg Q4HP PRN IV 09/02/24 17:00 Enoxaparin Sodium 40 mg DAILY SC 09/03/24 10:00 09/04/24 10:00 40 MG Acetaminophen 650 mg Q6HP PRN PO 09/02/24 17:00 09/04/24 11:48 650 MG Morphine Sulfate 2 mg Q4HPRN PRN IV 09/02/24 17:00 Nitroglycerin 0.4 mg Q5MINP PRN SL 09/02/24 17:00 Morphine Sulfate 2 mg Q30M PRN IV 09/02/24 17:00 Laboratory Results Laboratory Tests 09/03/24 05:45 09/04/24 13:33 Chemistry Test 09/04/24 13:33 Calcium Level 9.9 mg/dL (8.7-10.4) Magnesium Level 2.0 mg/dL (1.6-2.6) Urinalysis Test 09/02/24 13:32 Urine Color Light-yellow (Yellow) Urine Clarity Clear (Clear) Urine pH 5.0 (5.0-9.0) Urine Specific [place] 1.011 (1.001-1.035) Urine Protein Negative (Negative) Urine Ketones Negative (Negative) Urine Blood Negative /uL (Negative) Urine Nitrite Negative (Negative) Urine Bilirubin Negative (Negative) Urine Urobilinogen Normal mg/dL (Negative) Urine Leukocyte Esterase Negative /uL (Negative) Urine RBC 1 /hpf (0 - 3) Urine WBC <1 /hpf (0 - 3) Urine Squamous Epithelial Cells None seen /hpf (<5) Urine Bacteria None seen /hpf (None Seen) Urine Glucose Normal mg/dL (Normal) Assessment/Plan Assessment/Plan 74-year-old male with known history of coronary artery disease status post CABG, hypertension he has been in the hospital with a have 1. Acute cephalgia rule out acute Protonix 2. Coronary artery disease status post CABG 3. Episode of bradycardia in ER, Currently in normal sinus rhythm -MRI brain with and without contrast. Neurology consultation [place] -2D echo, cardiology consultation, CT head is negative, plan of care discussed with the patient was patient and family members. Plan discussed with: Patient, Spouse, Daughter My Orders Orders - YURIDIA FANG MD Procedure Category Date Status Time Discharge DISCHARGE 09/03/24 Transmitted 16:53 [facility]ierrez Neuro Consult CONS 09/04/24 Transmitted 14:28 Date of Service: Sep 04, 2024 Billing Provider: YURIDIA FANG MD Common Visit Codes: NOT BILLABLE YURIDIA FANG MD Sep 04, 2024 14:36
--- NOTE | 2024-09-04 17:19 | DVHINCON2 ---
HISTORY OF PRESENT ILLNESS: The patient is a pleasant 74-year-old gentleman who comes in complaining of a headache. He states that his symptoms have gotten increasingly worse. Increasing with more severe and intense headaches. He has had a history of sinusitis in the past. He has had a history of bypass grafting several years ago of three vessels at [place]. He has not had chest pain or shortness of breath. He does have a history of hypertension. He gets palpitations and frequent PVCs. No chest pain or shortness of breath. His biggest concerns are his headaches. He has had a history of bypass grafting. Hyperlipidemia. Nondrinker, nonsmoker, no allergies. He is accompanied by his . He has a history of arthritis, history of cancer, hyperlipidemia, hypertension, history of hernia repair. FAMILY HISTORY: Negative. SOCIAL HISTORY: Nondrinker, nonsmoker. ALLERGIES: No allergies. REVIEW OF SYSTEMS: CONSTITUTIONAL: Constitutional symptoms of fevers, chills, or weight loss negative. ENT: As noted above. RESPIRATORY: As noted above. CARDIOVASCULAR: As noted above. GASTROINTESTINAL: Otherwise, negative. GENITOURINARY: Otherwise, negative. NEUROLOGICAL: Otherwise, negative. MUSCULOSKELETAL: Otherwise, negative. INTEGUMENTARY: Otherwise, negative. ALLERGY/IMMUNOLOGY: Otherwise, negative. ENDOCRINE: Otherwise, negative. PSYCHIATRIC: Otherwise, negative. PHYSICAL EXAMINATION: GENERAL: He is awake and responsive, in no acute distress. VITAL SIGNS: Blood pressure is 113/53, respiratory rate of 18, pulse of 71. HEENT: Otherwise, unremarkable. Orally well hydrated. NECK: No jugular venous distention, no bruits. LUNGS: Reveal good air entry. No rales or rhonchi. HEART: Reveals regular S1, S2, soft S4. ABDOMEN: Unremarkable. EXTREMITIES: Reveal adequate perfusion without clubbing, cyanosis. No edema. NEUROLOGIC: Intact. LABORATORY DATA: WBC count is 8000, hematocrit is 33. Normal differential. Platelet count is normal at 179. Sodium is 134, potassium 4.3. BUN and creatinine is 21 and 1.04 respectively. Magnesium level is 2. IMPRESSION: Hypertension. Headaches. History of coronary artery disease, remote. No history of chest pain or shortness of breath. No cardiac anomalies at this time. RECOMMENDATIONS: From a cardiac standpoint, would continue to address his headaches. Possible allergies. Possible sinusitis. I would follow him up as an outpatient. No further cardiac testing needed at this time. Incidentally, he did see Dr. Viveros, did perform a stress test last year and that was normal. MD SUSANNAH Kessler/JERMAINE TID: [id number] RECEIPT: [id number]
[2024-09-05] VITALS (9 sets, daily range): BP systolic 107–130; BP diastolic 50–66; PULSE 68–79; RESP 16–20; TEMP 97.5–98.8; O2SAT 92–97
--- NOTE | 2024-09-05 09:46 | BSKYNEURO ---
[facility] Note # Demographics Consult Type: General Neurology Patient Location: Inpatient First Name: Miguel Last Name: Michael Date of : 1950 Age: 74 Gender: Male Facility: [facility] Time of Initial Page (): 09/05/2024, 06:02 Time of Return Call (): 09/05/2024, 06:02 # HPI History: Patient is coming to ER for headaches for the past 3 weeks; it is located in the front of the head, range in severity from 8-10/10. Denied nausea, photophobia. Usually has headaches in morning # Scores Level of Consciousness 1a: [0] = Alert; keenly responsive LOC Questions 1b: [0] = Answers both questions correctly LOC Commands 1c: [0] = Performs both tasks correctly Best Gaze 2: [0] = Normal Visual 3: [0] = No visual loss Facial Palsy 4: [0] = Normal symmetrical movements Motor Arm Left 5a: [0] = No drift Motor Arm Right 5b: [0] = No drift Motor Leg Left 6a: [0] = No drift Motor Leg Right 6b: [0] = No drift Limb Ataxia 7: [0] = Absent Sensory 8: [0] = Normal Best Language 9: [0] = No aphasia Dysarthria 10: [0] = Normal Extinction and Inattention 11: [0] = No abnormality NIHSS Total: 0 # Assessment Impression: - Headache Patient symptoms are consistent with new onset of headaches; considering age, need MRI brain wwo contrast to rule out a mass. If MRI brain shows no growth, may need sleep study as outpatient to evaluate for sleep apnea. # Plan Labs: - comprehensive metabolic panel - ua - ESR - urine drug screen - TSH - Ammonia - CBC Imaging: (urgency: routine): - MRI Brain with AND without contrast Medication: - migraine cocktail: Toradol 30 mg IV + Benadryl 25 mg IV + antiemetic IV Other: - If patient has any neurological deterioration please call me back immediately - neurology referral as outpatient - I have discussed my recommendations with the referring provider - may discharge home if complete symptom resolution and all urgent imaging negative for acute pathology Additional Recommendations: -Please give 1 dose Dexamethasone 4 mg IV once # Logistics Attestation of consult completion: The patient is located at: [facility]. Facility staff participated in the visit. I performed this telemedicine visit from my offsite office utilizing interactive 2 way audio and visual telecommunication technology. Total time spent in telemedicine encounter: I spent 15 minutes reviewing clinical data and/or imaging, obtaining history, examining the patient, communicating with the onsite care team, and in preparation of this report. # Demographics First Name: Miguel Last Name: Michael Facility: [facility] Yes MERCED PYLE MD Sep 05, 2024 09:46
--- NOTE | 2024-09-05 14:50 | DVHDS2 ---
Discharge Summary Date of Admission Sep 02, 2024 at 16:52 Date of Discharge: Sep 03, 2024 Labs/Diagnostic Data: Laboratory Results Test 09/04/24 13:33 09/03/24 05:45 09/02/24 13:32 09/02/24 12:58 Sodium Level 134 mmol/L (136-145) Potassium Level 4.3 mmol/L (3.5-5.1) Chloride Level 101 mmol/L (98-107) Carbon Dioxide Level 23 mmol/L (20-31) Anion Gap 10 (5-15) Blood Urea Nitrogen 21 mg/dL (9-23) Creatinine 1.04 mg/dL (0.700-1.30) Glomerular Filtration Rate Calc 74 mL/min (>90) BUN/Creatinine Ratio 20.2 (10.0-20.0) Serum Glucose 104 mg/dL (74-106) Calcium Level 9.9 mg/dL (8.7-10.4) Magnesium Level 2.0 mg/dL (1.6-2.6) White Blood Count 8.3 10^3/uL (4.4-10.8) Red Blood Count 3.42 10^6/uL (4.5-5.90) Hemoglobin 11.6 g/dL (13.5-17.5) Hematocrit 33.5 % (41.0-53.0) Mean Corpuscular Volume 98.2 fL (80.0-100.0) Mean Corpuscular Hemoglobin 34.0 pg (28.0-32.0) Mean Corpuscular Hemoglobin Concent 34.6 g/dL (32.0-36.0) Red Cell Distribution Width 15.8 % (11.8-14.3) Platelet Count 179 10^3/uL (140-450) Mean Platelet Volume 7.2 fL (6.9-10.8) Neutrophils (%) (Auto) 52.0 % (37.0-80.0) Lymphocytes (%) (Auto) 31.3 % (10.0-50.0) Monocytes (%) (Auto) 11.0 % (0.0-12.0) Eosinophils (%) (Auto) 5.2 % (0.0-7.0) Basophils (%) (Auto) 0.5 % (0.0-2.0) Neutrophils # (Auto) 4.3 10 ^3/uL (1.6-8.6) Lymphocytes # (Auto) 2.6 10 ^3/uL (0.4-5.4) Monocytes # (Auto) 0.9 10 ^3/uL (0-1.3) Eosinophils # (Auto) 0.4 10 ^3/uL (0-0.8) Basophils # (Auto) 0 10 ^3/uL (0-0.2) Nucleated Red Blood Cells 0.2 % Total Bilirubin 0.5 mg/dL (0.2-1.0) Aspartate Amino Transferase (AST) 11 U/L (13-40) Alanine Aminotransferase (ALT) 16 U/L (7-40) Alkaline Phosphatase 86 U/L (46-116) Total Protein 8.3 g/dL (5.7-8.2) Albumin 3.7 g/dL (3.2-4.8) Urine Color Light-yellow (Yellow) Urine Clarity Clear (Clear) Urine pH 5.0 (5.0-9.0) Urine Specific [place] 1.011 (1.001-1.035) Urine Protein Negative (Negative) Urine Ketones Negative (Negative) Urine Blood Negative /uL (Negative) Urine Nitrite Negative (Negative) Urine Bilirubin Negative (Negative) Urine Urobilinogen Normal mg/dL (Negative) Urine Leukocyte Esterase Negative /uL (Negative) Urine RBC 1 /hpf (0 - 3) Urine WBC <1 /hpf (0 - 3) Urine Squamous Epithelial Cells None seen /hpf (<5) Urine Bacteria None seen /hpf (None Seen) Urine Glucose Normal mg/dL (Normal) Troponin I High Sensitivity 4 ng/L (</=54) Other Laboratory Tests 09/04/24 13:33 09/03/24 05:45 Brief Hx & Hospital Course: 74-year-old male with a known history of hypertension, coronary artery disease status post CABG who initially presented to the hospital with a headache found to have bradycardia into 30s 40s. During the whole hospital stay patient in normal sinus rhythm without any bradycardia. Patient is complaining of headache, denies any neck pain denies any fevers chills denies any loss of weight. Tele neuro was consulted as there is no in-house neurologist over the weekend. [facility] tele neuro recommended Toradol IV + Benadryl IV plus antiemetic. If headache resolved outpatient follow up with the PCP and Neurology for MRI brain noncontrast as patient has coils from her previous heart surgery, record from [facility] was requested but because of the long weekend, records will be available. Patient and patient's at bedside they are requesting to go home if headache resolves. Patient was explained in case worsening headache or any weakness fevers chills any concern please come back to ER. This was explained to patient and patient's at bedside in the presence of charge nurse Dariela who interpreted the Bulgarian for me. All the questions were answered. Yung, bedside RN we will give these IV medication mentioned above as per neurologist recommendation and discharged the patient home if headache resolves. Condition at Discharge: Stable Final Diagnosis/Problems List 1. Bradycardia, currently in normal sinus rhythm 2. Acute cephalgia, CT head is negative 3. Coronary artery disease status post CABG 4. Hypertension Discharge Disposition: Home SNF Discharge Will this Physician continue t: No Discharge Instruct/Medications Diet: Cardiac 2g Na,low cholest Activity: No Restrictions, As Tolerated Follow Up/Referral: Follow up with the PCP in in one week, MRI brain noncontrast outpatient with a in one week Follow up with Dr. Olson Cardiology in 1-2 weeks Medications: Resume home medications Discharge Statement: "Patient was advised to return to the ER or call 911 if any headaches, dizziness, shortness of breath, chest pain, abdominal pain, bleeding, fevers, or worsening of medical condition. Patient was counseled about treatment plan, medications, possible side effects, patientverbalized understanding. All questions were answered to the best of my ability. This discharge took greater then 30 minutes in planning, reviewing documentation, counseling the patient, and discussing with other team members." ASSESSMENT ASSESSMENT Assessment 1. Bradycardia, currently in normal sinus rhythm 2. Acute cephalgia, CT head is negative 3. Coronary artery disease status post CABG 4. Hypertension Date of Service: Sep 05, 2024 Billing Provider: YURIDIA FANG MD Common Visit Codes: NOT BILLABLE YURIDIA FANG MD Sep 05, 2024 14:50
[2024-09-05] MEDS ORDERED: IOHEXOL 350 MG/ML 100ML IJ ONE (15:18)
[2024-09-05] MEDS: KETOROLAC TROMETH 30 MG/ML 1ML VIAL IV ONE (15:55)
[2024-09-05] MEDS: diphenhdrAMINE HCL 50 MG/1 ML VL IV ONE (15:55)
[2024-09-05] MEDS: ONDANSETRON HCL 4 MG/2 ML VIAL IV ONE (15:55)
--- NOTE | 2024-09-05 16:07 | DVH ---
CLINICAL INFORMATION: 74 years old, Male; headaches. TECHNIQUE: Axial imaging was obtained through the brain without contrast. Coronal and sagittal refor matted images were obtained, reviewed, and stored. Images were reviewed in brain and bone windows. A ll CT scans at this medical facility are performed using dose modulation techniques as appropriate to a performed exam including the following: Automated exposure control was utilized; adjustment of the MA and/or KV according to patient size; and use of iterative reconstruction technique. CTDIvol = 22.3, 28.47, 57.4, 0.07, 0.07 mGy DLP = 1881.03 mGy-cm COMPARISON: None. FINDINGS: Bilateral subdural hematomas, measuring up to 1.7 cm in thickness on the right and up to 0 .9 cm in thickness on the left, extending along the entire length of the lateral convexities, with hy perdense hemorrhage, likely acute or subacute hemorrhage on the right and low-density hemorrhage on t he left, which may be subacute. There is partial effacement of the adjacent bilateral cerebral sulci. No significant midline shift is seen. The ventricles are slightly small in size bilaterally, likely due to mild mass effect. No acute calvarial fracture. Mild mucosal thickening of the paranasal s inuses. Mastoid air cells appear clear. IMPRESSION: 1. Bilateral subdural hematomas, likely acute or subacute on the right and possibly subacute on the l eft with associated mass effect on the adjacent sulci. No midline shift. 2. No evidence of calvarial fracture.
--- NOTE | 2024-09-05 16:15 | DVH ---
Procedure: CT ANGIO HEAD/Neck HISTORY: head neck Comparison Study: No prior cTAs of the neck Exam Date:09/05/2024 03:21 PM TECHNIQUE: CTA head without and with intravenous contrast. CTA neck with intravenous contrast. 3D [email or web address] postprocessing was performed and images were used for interpretation and reporting. Radiation Dose : CT Dose: CTDI volume is 28.47 mGy. Dose-length product is 1881.03 mGy*cm Omnipaque 350: 100 mL FINDINGS: CTA head: There is normal enhancement of the visualized distal internal carotid, anterior and middle cerebral a rteries. There is a normal anterior communicating artery complex. There are bilateral posterior commu nicating arteries. The vertebral, basilar, cerebellar and posterior cerebral arteries are within norm al limits. The early parenchymal enhancement is grossly unremarkable. The visualized intracranial fabian ous structures are grossly unremarkable. CTA neck: The visualized thoracic aortic arch and proximal great vessels are unremarkable. The left common, int ernal and external carotid arteries are within normal limits. The right common, internal and external carotid arteries are within normal limits. The cervical segments of the right and left vertebral art eries are within normal limits. The limited visualized lung apices are clear. The surrounding soft ti ssues and osseous structures are otherwise unremarkable. Tissue density of the fluid collection on the right is 77.97 HU. Tissue density of the fluid collect ion on the left is 42.37 There is a right sided acute subdural hematoma. There is a 0.35 cm midline shift to the left. Subdura l measures 12.0 cm in length on 1.6 cm in thickness. Calcifications in the origin of the right manufacturing engineering intern al carotid. No occlusion. Fewer calcifications of the origin of the left internal carotid no occlusion. A1 segment on the left not well seen. IMPRESSION: 1. No evidence of hemodynamically significant intracranial stenosis, proximal occlusion or aneurysm. 2. No evidence of hemodynamically significant cervical stenosis or dissection. 3. Acute right subdural hematoma measures cell 2.4 cm in length and 1.6 cm in thickness. There is a 0 .35 cm midline shift to the left. 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 CRITICAL FINDINGS Critical Result: ACUTE RIGHT SUBDURAL HEMATOMA. Findings discussed with MIGNON ACEVEDO , at 09/05/2024 04:03 PM, and acknowledged receipt and understanding of the findings. .. CAROTID STENOSIS REFERENCE Distal internal carotid artery diameter as the denominator for stenosis measurement: MILD = <50% stenosis. MODERATE = 50-69% stenosis. SEVERE = 70-89% stenosis. CRITICAL = 90-99% stenosis. OCCLUDED = 100% stenosis. All CT scans at this medical facility are performed using dose modulation techniques as appropriate t o a performed exam including the following: Automated exposure control was utilized; adjustment of th e MA and/or KV according to patient size; and use of iterative reconstruction technique.
[2024-09-05] MEDS: SODIUM CHLORIDE 0.9% 1,000 ML IV SCH (17:56)
--- NOTE | 2024-09-05 19:16 | BSKYNEURO ---
[facility] # Demographics Consult Type: General Neurology Patient Location: Inpatient First Name: Miguel Last Name: Michael Date of : 1950 Age: 74 Gender: Male Facility: [facility] Time of Initial Page ([place] Time): 09/05/2024, 18:09 Time of Return Call ([place] Time): 09/05/2024, 18:09 # HPI History: Patient currently admitted for severe headaches for the past 3 weeks. he had the head CT done. # Exam Mental Status: - awake - alert and oriented x 3 - follows commands Language: - no aphasia # Assessment Impression: - Headache - Subdural Hematoma His CT head showed SDH; avoid any blood thinners, including OTC NSAIDs. Hold off patient apixiban. Cardiology consultation for possible watchman device # Plan Target Blood Pressure: SBP < 160 Labs: - comprehensive metabolic panel - CBC - ua - urine drug screen Imaging: (urgency: routine): - MRI Brain without contrast Medication: -Oxycodone is preferred for headache control; avoid OTC NSAIDs -Hold off apixiban DVT Prophylaxis: - SCD Other: - If patient has any neurological deterioration please call me back immediately - consult neurosurgery - telemetry monitoring Additional Recommendations: -Cardiology consultation for possible watchman device Disposition: continue admission # Logistics Attestation of consult completion: The patient is located at: [facility]. Facility staff participated in the visit. I performed this telemedicine visit from my offsite office utilizing interactive 2 way audio and visual telecommunication technology. Total time spent in telemedicine encounter: I spent 15 minutes reviewing clinical data and/or imaging, obtaining history, examining the patient, communicating with the onsite care team, and in preparation of this report. # Demographics First Name: Miguel Last Name: Michael Facility: [facility] Yes MERCED PYLE MD Sep 05, 2024 19:16
[2024-09-06] VITALS (7 sets, daily range): BP systolic 103–141; BP diastolic 47–65; PULSE 68–88; RESP 16–20; TEMP 97.7–98.5; O2SAT 93–97
--- NOTE | 2024-09-06 17:36 | DVHPN2 ---
Progress Note - Dictate Date Seen: Sep 06, 2024 Medical Necessity Reason Pt with a Central, PICC or Fol: No Subjective Patient is seen and evaluated chart is reviewed and discussed with Dr. Bello regarding his transferred to higher level of care as well as patient and his who is at bedside through crane hoist or lift operator/nurse. Patient headache is slightly better. But still having some headaches. vital signs Vital Sign Date Time Temp Pulse Resp B/P (MAP) Pulse Ox O2 Delivery O2 Flow Rate FiO2 09/06/24 12:33 97.9 69 18 121/51 (74) 94 97.9 09/06/24 08:00 Room Air* 0 21 Total Intake and Output 09/05/24 09/05/24 09/06/24 15:00 23:00 07:00 Intake Total 900 ml 200 ml Balance 900 ml 200 ml medications Current Medications Medications Dose Ordered Sig/[place] Route Start Time Stop Time Status Last Admin Dose Admin Acetaminophen/ Hydrocodone Bitart 1 tab Q4HP PRN PO 09/02/24 17:00 09/03/24 07:08 1 TAB Ondansetron HCl 4 mg Q4HP PRN IV 09/02/24 17:00 Acetaminophen 650 mg Q6HP PRN PO 09/02/24 17:00 09/06/24 15:13 650 MG Morphine Sulfate 2 mg Q4HPRN PRN IV 09/02/24 17:00 Nitroglycerin 0.4 mg Q5MINP PRN SL 09/02/24 17:00 Morphine Sulfate 2 mg Q30M PRN IV 09/02/24 17:00 objective Alert awake oriented x3. No acute distress. HEENT neck supple no JVD pupils equal round react to light. Oropharynx clear. Heart regular rate and rhythm S1 and S2. Lungs fair air movement without rales wheezes. Abdomen soft nontender positive bowel sounds. Extremities no edema positive pulses. Neurologically no focal deficits noted. laboratory and microbiology Laboratory Tests 09/04/24 13:33 09/03/24 05:45 Test 09/04/24 13:33 Range/Units Serum Glucose 104 74-106 mg/dL Assessment/Plan Neurologically patient is stable. Discussed with the [facility] hospitalist this morning as well as neurosurgeon last night per Dr. Bello. If they have a bed available he will be transferred for neurosurgical evaluation for his bilateral subdural hematoma. Meantime patient continued to stop taking Eliquis. Apparently he has been taking Eliquis for his heart problems for last 2-3 years. Patient had a bypass surgery three years ago since then he has been on Eliquis. Patient and his verbalized understanding of his hospital diagnosis, CT scans findings, and agreed with discharge care plan. Problems(with codes): (1) Weakness (2) Subdural hematoma, acute (3) Chronic subdural hematoma (4) Nontraumatic subdural hematoma Plan discussed with: Patient, Spouse, Other NIEVES MCDONALD MD Sep 06, 2024 17:36
== END 2024-09-07 04:25 | disposition short-term general hospital (02) | DRG 102 ==
LOC: ER 11:29 → TELE 16:52 → TELE-EAST 21:15
PROVIDERS: ADMIT Internal Medicine; ATTEND Internal Medicine
DX: G43.809 Other migraine, not intractable, without status migrainosus (principal); I62.01 Nontraumatic acute subdural hemorrhage; I62.03 Nontraumatic chronic subdural hemorrhage; I25.10 Atherosclerotic heart disease of native coronary artery without angina pectoris; I10 Essential (primary) hypertension; E78.5 Hyperlipidemia, unspecified; J45.909 Unspecified asthma, uncomplicated; I49.3 Ventricular premature depolarization; I95.9 Hypotension, unspecified; Z95.1 Presence of aortocoronary bypass graft; Z79.899 Other long term (current) drug therapy
CPT/HCPCS: 36415; 70450; 70496; 71046; 80048; 80053; 81001; 83735; 84484; 85025; 93005; 93306; 96361; 96374; 97110; 97116; 97163; G0378; J1885; J2405

== ENCOUNTER 2024-09-17 14:54 | Emergency (ER) | payer OTHER ==
[~2024-09-17] VITALS: Ht 182.9 cm; Wt 77.3 kg
[2024-09-17] MEDS: SODIUM CHLORIDE 0.9% 500 ML IV ONE ×2 (15:15→16:04)
--- NOTE | 2024-09-17 15:21 | ED.PDOC ---
HPI Comments 74 year old male RUI presents to the ED with chief complaint of syncope. EMS reports patient had mentioned to his family at home he had been feeling weak when all of a sudden, patient lost consciousness, but was caught and put in a chair before falling. Patient relays that he does not remember any of the events that have since transpired today. EMS states patient's initial BP had a systolic of 66, but when given IV NS, it went up to the 80s. Patient denies any chest pain, SOB, dizziness, headache, N/V, or fever. Chief Complaint: General Weakness Time Seen by MD: 15:14 Primary Care Provider: FRANCISCO Reviewed Notes: Nurses Notes, Supervisor Publications Notes, Medications, Allergies Allergies: Coded Allergies: No Known Drug Allergy (Verified Allergy, Unknown, 09/25/21) Home Meds Active Scripts Levofloxacin (Levaquin) 500 Mg Tab, 500 MG PO DAILY, #7 MG Prov:KELIN DELACRUZ MD 01/11/23 Reported Medications Apixaban Base (ELIQUIS) 2.5 Mg Tab, 2.5 MG PO BID, TAB 09/03/24 Adalimumab (Humira Pen) 40 Mg/0.4 Ml Inj, 40 MG SC UD, INJ 08/22/22 Prednisolone Acetate (Ophth) (Pred Forte) 1 % Erin, 1 % OP, ML 08/22/22 Fluticasone Propionate (Fluticasone Propionate) 0.05 % Cre, 50 MCG SOPHIE for 30 Days, MCG 08/22/22 Albuterol Sulfate (Albuterol Sulfate) 2 Mg Tab, 90 MCG IN, MG 08/22/22 Atorvastatin Calcium (ATORVASTATIN CALCIUM) 10 Mg Tab, 1 TAB PO DAILY, #90 TAB 1 Refill 08/21/22 Furosemide (Lasix) 20 Mg Tb, 1 TAB PO DAILY, #90 TAB 1 Refill 08/21/22 Carvedilol (Carvedilol) 3.125 Mg Tab, 3.125 MG PO BID, TAB 08/21/22 Apixaban Base (ELIQUIS) 2.5 Mg Tab, 2.5 MG PO BID, TAB 08/21/22 Information Source: Patient, Emergency Med Personnel Mode of Arrival: EMS Severity: Moderate Timing: Hours Duration: Since onset Prehospital treatment: None Onset: At Rest Cardiac Risk Factors: Hyperlipidemia PE Risk Factors: None History of: None Associated Signs and Symptoms: Syncope Past Medical History PAST MEDICAL HISTORY: Arthritis, Asthma, CAD, Cancer, CVA, High Lipids, HTN Surgical History: CABG, Hernia Repair Family History Family History: Reviewed,noncontributory to illness, Family hx of Cancer, Family hx of heart cedric Social History Smoker: Non-Smoker Alcohol: Denies ETOH Use Drugs: Denies Drug Use Lives In: Home Constitutional: reports: weakness; denies: chills, diaphoresis, fatigue, fever, malaise, sweats, others EENTM: denies: blurred vision, double vision, ear bleeding, ear discharge, ear drainage, ear pain, ear ringing, eye pain, eye redness, hearing loss, mouth pain, mouth swelling, nasal discharge, nose bleeding, nose congestion, nose pain, photophobia, tearing, throat pain, throat swelling, voice changes, others Respiratory: denies: cough, hemoptysis, orthopnea, SOB at rest, shortness of breath, SOB with excertion, stridor, wheezing, others Cardiovascular: reports: syncope; denies: chest pain, dizzy spells, diaphoresis, Dyspnea on exertion, edema, irregular heart beat, left arm pain, lightheadedness, palpitations, PND, others Gastrointestinal: denies: abdomen distended, abdominal pain, blood streaked bowels, constipated, diarrhea, dysphagia, difficulty swallowing, hematemesis, melena, nausea, poor appetite, poor fluid intake, rectal bleeding, rectal pain, vomiting, others Genitourinary: denies: burning, dysuria, flank pain, frequency, hematuria, incontinence, penile discharge, penile sore, pain, testicle pain, testicle swelling, urgency, others Neurological: denies: dizziness, fainting, headache, left sided numbness, left sided weakness, numbness, paresthesia, pre-existing deficit, right sided numbness, right sided weakness, seizure, speech problems, tingling, tremors, w eakness, others Musculoskeletal: denies: back pain, gout, joint pain, joint swelling, muscle pain, muscle stiffness, neck pain, others Integumetry: denies: bruises, change in color, change in hair/nails, dryness, laceration, lesions, lumps, rash, wounds, others Allergic/Immunocompromised: denies: Difficulty Healing, Frequent Infections, Hives, Itching, others Hematologic/Lymphatic: denies: anemia, blood clots, easy bleeding, easy bruising, swollen glands, others Endocrine: denies: excessive hunger, excessive sweating, excessive thirst, excessive urination, flushing, intolerance to cold, intolerance to heat, unexplained weight gain, unexplained weight loss, others Psychiatric: denies: anxiety, bipolar disorder, depression, hopeless, panic disorder, schizophrenia, sleepless, suicidal, others All Other Systems: Reviewed and Negative Physical Exam General Appearance: No Apparent Distress, Normal HEENT: Normal ENT Inspection, Pharynx Normal, TMs Normal, Other (Dry mucuous membranes, no slurred speech) Neck: Full Range of Motion, Non-Tender, Normal, Normal Inspection Respiratory: Chest Non-Tender, Lungs Clear, No Accessory Muscle Use, No Resp iratory Distress, Normal Breath Sounds Cardiovascular: No Edema, No JVD, No Murmur, No Gallop, Normal Peripheral Pulses, Regular Rate/Rhythm Breast Exam: Deferred Gastrointestinal: No Organomegaly, Non Tender, No Pulsatile Mass, Normal Bowel Sounds, Soft Genitalia: Deferred Pelvic: Deferred Rectal: Deferred Extremities: No calf tenderness, Normal capillary refill, Normal inspection, Normal range of motion, Non-tender, No pedal edema Musculoskeletal : Apperance: Normal Neurologic: Alert, explosive man II-XII nml as Tested, No Motor Deficits, Normal Affect, Normal Mood, No Sensory Deficits Cerebellar Function: Normal Reflexes: Normal Skin: Dry, Normal Color, Warm Lymphatic: No Adenopathy EKG EKG : Pulse Rate (adult): 60 [place]: Normal Cardiac Rhythm: NSR Block: None Hypertrophy: None ST: Normal Was a procedure done? Was a procedure done?: No CP Differential Dx Differential Diagnosis: Anxiety / Panic Attack, Heart Failure, Hypoxia, Renal Failure Differential Diagnosis: CHF, Medical NonCompliance, Other (sepsis, intraabdominal catastrophe, sbo, colitis, ischemic bowel in) Differential Diagnosis: Myocardial Infarction, Pneumonia X-Ray, Labs, Meds, VS Vital Signs Date Time Temp Pulse Resp B/P (MAP) Pulse Ox O2 Delivery O2 Flow Rate FiO2 09/17/24 16:58 66 17 97 Room Air* 0 21 09/17/24 16:51 98.3 66 17 96/44 (61) 97 98.3 09/17/24 15:18 97.8 63 16 88/41 (57) 98 09/17/24 15:08 60 Lab Test 09/17/24 18:34 09/17/24 16:33 09/17/24 15:13 Range/Units Troponin I High Sensitivity Pending 10 10 </=54 ng/L Lactic Acid Level 1.6 0.4-2.0 mmol/L White Blood Count 19.5 H 4.4-10.8 10^3/uL Red Blood Count 3.55 L 4.5-5.90 10^6/uL Hemoglobin 11.5 L 13.5-17.5 g/dL Hematocrit 35.0 L 41.0-53.0 % Mean Corpuscular Volume 98.6 80.0-100.0 fL Mean Corpuscular Hemoglobin 32.5 H 28.0-32.0 pg Mean Corpuscular Hemoglobin Concent 33.0 32.0-36.0 g/dL Red Cell Distribution Width 16.3 H 11.8-14.3 % Platelet Count 186 140-450 10^3/uL Mean Platelet Volume 7.6 6.9-10.8 fL Neutrophils (%) (Auto) 86.0 H 37.0-80.0 % Lymphocytes (%) (Auto) 7.5 L 10.0-50.0 % Monocytes (%) (Auto) 6.1 0.0-12.0 % Eosinophils (%) (Auto) 0.3 0.0-7.0 % Basophils (%) (Auto) 0.1 0.0-2.0 % Neutrophils # (Auto) 16.8 H 1.6-8.6 10 ^3/uL Lymphocytes # (Auto) 1.5 0.4-5.4 10 ^3/uL Monocytes # (Auto) 1.2 0-1.3 10 ^3/uL Eosinophils # (Auto) 0.1 0-0.8 10 ^3/uL Basophils # (Auto) 0 0-0.2 10 ^3/uL Nucleated Red Blood Cells 0.0 % Sodium Level 137 136-145 mmol/L Potassium Level 4.0 3.5-5.1 mmol/L Chloride Level 102 98-107 mmol/L Carbon Dioxide Level 27 20-31 mmol/L Anion Gap 8 5-15 Blood Urea Nitrogen 29 H 9-23 mg/dL Creatinine 1.16 0.700-1.30 mg/dL Glomerular Filtration Rate Calc 65 >90 mL/min BUN/Creatinine Ratio 25.0 H 10.0-20.0 Serum Glucose 133 H 74-106 mg/dL Calcium Level 8.5 L 8.7-10.4 mg/dL Current Medications Medications (Trade) Dose Ordered Sig/[place] Route Start Time Stop Time Status Last Admin Sodium Chloride 500 ml @ 500 mls/hr Q1H ONCE IV 09/17/24 15:15 09/17/24 16:14 DC 09/17/24 15:15 Sodium Chloride 500 ml @ 500 mls/hr Q1H ONCE IV 09/17/24 16:00 09/17/24 17:32 DC 09/17/24 16:04 Sodium Chloride 2,350 ml @ 2,350 mls/hr ONCE ONCE IV 09/17/24 16:15 09/17/24 17:32 DC 09/17/24 16:40 Piperacillin Sod/ Tazobactam Sod 100 ml @ 25 mls/hr Q8HR IV 09/17/24 22:00 09/17/24 17:08 Azithromycin 250 ml @ 125 mls/hr ONCE ONCE IV 09/17/24 17:30 09/17/24 19:29 09/17/24 18:09 CT Abd/Pel: Findings: Evaluation of solid organs is limited due to lack of intravenous contrast use. Lung Bases: Consolidation in the right middle lobe. Tree-in-bud nodularity in the bilateral lower lobes. Nodular consolidation Liver: Subcentimeter left hepatic cyst. Gallbladder and biliary Tree: Cholelithiasis. Spleen: Unremarkable Pancreas: The pancreas is grossly normal in appearance. Adrenal Glands: Unremarkable Kidneys: Right renal calculi measuring up to 3 mm. Punctate left renal calculi. No hydronephrosis. Bladder: Grossly unremarkable for degree of distention. Bowel: The stomach is grossly normal in appearance. Small bowel and colon are normal in caliber and distribution. Normal appendix is visualized in the right lower quadrant without findings of appendicitis. Sigmoid diverticulosis. Large amount of stool in the rectum. Ascites: Absent Lymphadenopathy: No mesenteric, retroperitoneal or periportal lymphadenopathy. Abdominal wall and Mesentery: Unremarkable. Vasculature: The visualized abdominal aorta is normal in size and caliber. There is extensive atherosclerotic calcification of the aorta and its branches. Evaluation of abdominal and pelvic vessels is limited due to lack of intravenous contrast. Pelvic Organs: Unremarkable Musculoskeletal: Grade 1 anterolisthesis of L4 on L5. IMPRESSION: 1. Bibasilar pneumonia worst in the right middle lobe. Recommend dedicated chest CT. No acute intra-abdominal finding. Cholelithiasis. Bilateral renal calculi. No hydronephrosis. Calcified atherosclerotic disease. Diverticulosis. Left hepatic cysts. Grade 1 anterolisthesis of L4 on L5. Chest XR: FINDINGS: Airspace disease is noted in the right lower lobe.. Left lung field appears clear. IMPRESSION: 1. Airspace disease right lower lobe. Images Reviewed?: Images reviewed and evaluated by me Time of 1ST Reevaluation: 16:14 Reevaluation 1ST: Unchanged Patient Education/Counseling: Diagnosis, Treatment, Prognosis, Need For Follow Up Family Education/Counseling: Diagnosis, Treatment, Prognosis, Need For Follow Up, No Family Present Additional Information - I reviewed the following notes from patient's past medical encounters: admission on 09/02/24 - The following tests were ordered, and results were reviewed by me: Troponin, UA, CBC, BMP, EKG, and Chest XR ct ap - Additional information was gathered from interviewing the following independent Historian: EMT, daughter, - I reviewed and agreed with the following test results read by other provider: Chest XR, ap ct - I discussed treatments and results with medical personnel and daughter, , spa consultant Departure 1 Departure Time of Disposition: 19:02 Impression: Primary Impression: Bilateral pneumonia Qualified Codes: J18.9 - Pneumonia, unspecified organism Additional Impressions: Sepsis Qualified Codes: A41.9 - Sepsis, unspecified organism Syncope Qualified Codes: R55 - Syncope and collapse Disposition: ADMITTED INPATIENT Admit to: [facility] Condition: Serious Critical Care Note Critical Care Time?: Yes (55 min-critical care time only) Critical care comment: due to concerns for pt's condition deteriorating, the care required my highest level of attention and readiness to intervene. i assessed the patient, ordered the appropriate treatments and tests and reassessed his response. i communicated with medical personnel and consultants, i reviewed his medical records, and formulated a treatment plan. cc time does not include any procedures Stability Stability form required: No Heart Score Heart Score: Heart Score Response (Comments) Value History Slightly Suspicious 0 EKG Repolarization Disturb 1 Age >65 2 Risk Factors >3 or Hx ASHD 2 Troponin Normal limit 0 Total 5 I personally scribed for JONATHON ORDAZ MD ([facility]) on 09/17/24 at 15:21. Electronically submitted by Cruz Bang ([email or web address]). I personally scribed for JONATHON ORDAZ MD ([facility]) on 09/17/24 at 15:22. Electronically submitted by Cruz Bang ([email or web address]). I personally scribed for JONATHON ORDAZ MD ([facility]) on 09/17/24 at 17:08. Electronically submitted by Cruz Bang ([email or web address]). I personally scribed for JONATHON ORDAZ MD ([facility]) on 09/17/24 at 17:41. Electronically submitted by Cruz Bang ([email or web address]). JONATHON ORDAZ MD Sep 17, 2024 15:21
[2024-09-17 15:37] LABS: Basophils # (auto) 0 10 ^3/uL (0-0.2); Basophils % (auto) 0.1 % (0.0-2.0); Eosinophils # (auto) 0.1 10 ^3/uL (0-0.8); Eosinophils % (auto) 0.3 % (0.0-7.0); Hemoglobin 11.5 g/dL (13.5-17.5); Lymphocytes # (auto) 1.5 10 ^3/uL (0.4-5.4); Lymphocytes % (auto) 7.5 % (10.0-50.0); Mean Corpuscular Hemoglobin 32.5 pg (28.0-32.0); Mean Corpuscular Volume 98.6 fL (80.0-100.0); Monocytes # (auto) 1.2 10 ^3/uL (0-1.3); Monocytes % (auto) 6.1 % (0.0-12.0); Neutrophils # (auto) 16.8 10 ^3/uL (1.6-8.6); Platelet Count (auto) 186 10^3/uL (140-450); Red Blood Cells 3.55 10^6/uL (4.5-5.90); Red Cell Distribution Width 16.3 % (11.8-14.3); White Blood Cell 19.5 10^3/uL (4.4-10.8)
[2024-09-17 15:47] LABS: Chloride 102 mmol/L (98-107); Sodium 137 mmol/L (136-145)
[2024-09-17 15:48] LABS: Anion Gap 8 (5-15); Carbon Dioxide 27 mmol/L (20-31)
[2024-09-17 15:58] LABS: Blood Urea Nitrogen 29 mg/dL (9-23); Calcium 8.5 mg/dL (8.7-10.4); Glucose 133 mg/dL (74-106)
[2024-09-17] MEDS: SODIUM CHLORIDE 0.9% 2,350 ML IV ONE (16:40)
--- NOTE | 2024-09-17 16:52 | DVH ---
Exam: CT CT AB PEL WO CON-NO ORAL OR IV History: sepsis Comparison Study: None Technique: Multidetector spiral CT of the abdomen and pelvis was performed from lung bases to pubic symphysis. Imaging was performed without IV contrast. Axial, coronal and sagittal multiplanar reform ats were obtained from the axial data set by the technologist. Radiation dose : Abdomen/Pelvis: CTDIvol 5 mGy, DLP 315.41 mGy*cm. Findings: Evaluation of solid organs is limited due to lack of intravenous contrast use. Lung Bases: Consolidation in the right middle lobe. Tree-in-bud nodularity in the bilateral lower lo bes. Nodular consolidation Liver: Subcentimeter left hepatic cyst. Gallbladder and biliary Tree: Cholelithiasis. Spleen: Unremarkable Pancreas: The pancreas is grossly normal in appearance. Adrenal Glands: Unremarkable Kidneys: Right renal calculi measuring up to 3 mm. Punctate left renal calculi. No hydronephrosis. Bladder: Grossly unremarkable for degree of distention. Bowel: The stomach is grossly normal in appearance. Small bowel and colon are normal in caliber and d istribution. Normal appendix is visualized in the right lower quadrant without findings of appendici tis. Sigmoid diverticulosis. Large amount of stool in the rectum. Ascites: Absent Lymphadenopathy: No mesenteric, retroperitoneal or periportal lymphadenopathy. Abdominal wall and Mesentery: Unremarkable. Vasculature: The visualized abdominal aorta is normal in size and caliber. There is extensive athero sclerotic calcification of the aorta and its branches. Evaluation of abdominal and pelvic vessels is limited due to lack of intravenous contrast. Pelvic Organs: Unremarkable Musculoskeletal: Grade 1 anterolisthesis of L4 on L5. IMPRESSION: 1. Bibasilar pneumonia worst in the right middle lobe. Recommend dedicated chest CT. No acute intra- abdominal finding. Cholelithiasis. Bilateral renal calculi. No hydronephrosis. Calcified atheroscle rotic disease. Diverticulosis. Left hepatic cysts. Grade 1 anterolisthesis of L4 on L5. Radiation optimization: All CT scans at this facility use at least one of these dose optimization marlee hniques: Automated exposure control mA and/or kV adjustment per patient size (includes targeted exams where dose is matched to clinical indication) or iterative reconstruction. HS:Y
[2024-09-17 16:58] VITALS: PULSE 66; RESP 17; O2SAT 97
[2024-09-17] MEDS: PIPERACILLIN-TAZOB 3.375GM 100 ML IV SCH (17:08)
--- NOTE | 2024-09-17 17:29 | DVH ---
EXAMINATION: AP portable chest radiograph CLINICAL HISTORY: syncope COMPARISON: CHEST PORTABLE on DOS: 08/21/22, CXRP on DOS: 08/21/22 TECHNIQUE: SINGLE UPRIGHT AP VIEW OF THE CHEST FINDINGS: Airspace disease is noted in the right lower lobe.. Left lung field appears clear. IMPRESSION: 1. Airspace disease right lower lobe.
[2024-09-17] MEDS: AZITHROMYCIN 500MG/ 250ML 250 ML IV ONE (18:09)
--- NOTE | 2024-09-17 20:18 | DVH ---
EXAM: CT HEAD WITHOUT CONTRAST INDICATION: per admitting provider for syncope TECHNIQUE: CT of the head without intravenous contrast. Radiation Dose Information: CT Dose: CTDI volume is 55.99 mGy. Dose-length product is 1103.39 mGy*cm The dose indicators for CT are the volume Computed Tomography (CT) Dose Index (CTDIvol) and the Dose Length Product (DLP), and are measured in units of mGy and mGy-cm, respectively. These indicators are not patient dose, but values generated from the CT scanner acquisition factors. The report includes radiation exposure data for exposures received during this examination. COMPARISON: CT HEAD WITHOUT CONTRAST on DOS: 09/05/24, CT ANGIO CHEST CONTRAST on DOS: 08/21/22 FINDINGS: There is no evidence of acute intracranial hemorrhage, extra-axial collection, mass effect, midline s hift, herniation or hydrocephalus. Stable chronic subdural on the left Improving acute on chronic right subdural hematoma. Decreasing acute hemorrhage in the chronic subdur al on the right. The ventricles, sulci and cisterns are age appropriate. The gregory-white differentiation is intact. Patchy periventricular and subcortical white matter hypoattenuation is nonspecific but may be related to small vessel ischemic disease. The visualized paranasal sinuses and mastoid air cells are clear. The surrounding soft tissues and osseous structures are unremarkable. IMPRESSION: 1. Stable chronic subdural on the left. 2. Improving acute on chronic right-sided subdural. 3. Study is compared with 09/05/2024
[2024-09-17] MEDS ORDERED: ONDANSETRON HCL 4 MG/2 ML VIAL IV PRN (20:45)
[2024-09-17] MEDS ORDERED: ACETAMINOPHEN 325 MG TAB PO PRN (20:45)
[2024-09-17] MEDS ORDERED: HYDROcodone-ACET 5/325MG TAB PO PRN (20:45)
[2024-09-17] MEDS ORDERED: DEXTROSE (50%) 50ML SYRG IV PRN (20:45)
[2024-09-17] MEDS ORDERED: SODIUM CHLORIDE 0.9% 1,000 ML IV ONE (20:45)
[2024-09-17 21:28] VITALS: PULSE 69; RESP 17; O2SAT 95
[2024-09-17] MEDS ORDERED: methylPREDNISolone SOD SUCC 40 MG/ML VL IV SCH (22:00)
[2024-09-17] MEDS ORDERED: ACCU-CHEK COMFORT CURVE STRIP VI SCH (22:00)
[2024-09-17] MEDS ORDERED: InsuLIN REG 1unit/0.01ml Soln (100units/ml) SC SCH (22:00)
--- NOTE | 2024-09-17 23:02 | ED.PDOC ---
Departure 1 Departure Time of Disposition: 23:01 (Patient has multifocal pneumonia. Patient also has acute on chronic subdural. Discussed with Dr. Gonzalez who recommends transfer to higher level of care. Discussed with Simón and patient was accepted by Dr. Rodriguez. We will attempt to reverse patient's anticoagulation. We will emp irically cover patient with Keppra.) Impression: Primary Impression: Acute on chronic intracranial subdural hematoma Additional Impressions: Bilateral pneumonia Qualified Codes: J18.9 - Pneumonia, unspecified organism Syncope Qualified Codes: R55 - Syncope and collapse Sepsis Qualified Codes: A41.9 - Sepsis, unspecified organism Disposition: [facility] Condition: Critical Critical Care Note Critical Care Time?: Yes Critical care comment: Acute brain bleed Authorized and Performed by: Darnell Kowalski MD Total critical care time: Approximately 44 minutes Due to a high probability of clinically significant, life threatening det erioration, the patient required my highest level of preparedness to intervene emergently and I personally spent this critical care time directly and personally managing the patient. This critical care time included obtaining a history; examining the patient; pulse oximetry; ordering and review of studies; arranging urgent treatment with development of a management plan; evaluation of patient's response to treatment; frequent reassessment; and, discussions with other providers. This critical care time was performed to assess and manage the high probability of imminent, life-threatening deterioration that could result in multi-organ failure. It was exclusive of separately billable procedures and treating other patients and teaching time. Please see my other sections and the rest of the note for further information on patient assessment and treatment. DARNELL KOWALSKI MD Sep 17, 2024 23:02
[2024-09-17] MEDS: levETIRAcetam 1000 mg/100ml 100 ML IV ONE (23:13)
[2024-09-18] MEDS ORDERED: IPRATROPIUM BROM 0.5 MG/2.5ML INH SOL NEB SCH
[2024-09-18 00:35] VITALS: BP 119/53; PULSE 60; RESP 12; TEMP 99.1; O2SAT 96
[2024-09-18] MEDS ORDERED: FAMOTIDINE 20 MG TAB PO SCH (10:00)
--- NOTE | 2024-09-20 08:56 | ECG ---
[facility] Test Date: 2024-09-17 Test Time: 15:08:53 Pat Name: AMBROSIO COBURN Department: er Room: Gender: M Ambulatory Care Nurse: : 1950 Requested By: JONATHON ORDAZ Order Number: [id number] Reading MD: Robel Olson Measurements Intervals [place] Rate: 60 P: 47 IA: 178 QRS: 91 QRSD: 95 T: 62 QT: 422 QTc: 422 Interpretive Statements Sinus rhythm Right axis deviation Borderline ST elevation, anterior leads Electronically Signed On 09-20-2024 12:39:30 PST by Robel Olson Please click the below link to view image of tracing.
== END 2024-09-18 02:59 | disposition short-term general hospital (02) ==
LOC: EDBD 14:54 → ER 14:54
DX: A41.9 Sepsis, unspecified organism (principal); J18.9 Pneumonia, unspecified organism; R55 Syncope and collapse; J45.909 Unspecified asthma, uncomplicated; Z86.73 Personal history of transient ischemic attack (TIA), and cerebral infarction without residual deficits; E78.5 Hyperlipidemia, unspecified; Z79.899 Other long term (current) drug therapy; Z98.890 Other specified postprocedural states
CPT/HCPCS: 36415; 70450; 71045; 74176; 80048; 83605; 84484; 85025; 87040; 93005; 96365; 96366; 96368; 99291; J0456; J1953; J2543; 96367